=== PATIENT | female | born 1950 | race Caucasian/White ===

== ENCOUNTER → 2018-01-21 07:54 | Outpatient (CLI) | payer MEDICARE, SELFPAY ==
--- NOTE | 2018-01-21 07:56 | DI.MG.S_ITS ---
BILATERAL DIGITAL SCREENING MAMMOGRAM 3D/2D WITH CAD: 01/21/2018 CLINICAL: Routine screening. Comparison is made to exam dated: 09/20/2015 mammogram - [facility]. The tissue of both breasts is predominantly fatty. Current study was also evaluated with a Computer Aided Detection (CAD) system. There is a focal asymmetry in the left breast at 7 o'clock middle depth. No other significant masses, calcifications, or other findings are seen in either breast. IMPRESSION: INCOMPLETE: NEEDS ADDITIONAL IMAGING EVALUATION The focal asymmetry in the left breast is indeterminate. Additional views with possible ultrasound are recommended. This exam was interpreted at Station ID: [id number]. NOTE: For mammograms, a report in lay terms will be sent to the patient. Approximately 15% of breast malignancies will not be visualized mammographically. In the management of a palpable breast mass, a negative mammogram must not discourage biopsy of a clinically suspicious lesion. Electronically Signed By: Karlie khalil/reynaldo:01/21/2018 10:47:52 letter sent: Additional Imaging Needed ACR BI-RADS Category 0: Incomplete 3340F
[2018-01-21 10:52] LABS: Hemoglobin A1C% w Est Avg Glu 6.1 % (4.0-6.0)
[2018-01-21 10:54] LABS: Alanine Aminotransferase 18 IU/L (9-52); Albumin 4.4 g/dL (3.5-5.0); Albumin Globulin Ratio 1.5 (1.0-2.8); Alkaline Phosphatase 82 U/L (38-126); Aspartate Aminotransferase 27 IU/L (14-36); BUN Creatinine Ratio 25.7 (6-22); Bilirubin Total 1.8 mg/dL (0.2-1.3); Blood Urea Nitrogen 18 mg/dL (7-17); Calcium 9.6 mg/dL (8.4-10.2); Carbon Dioxide 27 mmol/L (22-32); Chloride 103 mmol/L (98-107); Cholesterol 252 mg/dL (140-199); Estimated Glomerular Filt Rate > 60.0 mL/min (>60); Globulin 2.9 g/dL (1.7-4.1); Glucose 111 mg/dL (80-110); HDL Cholesterol 52 mg/dL (40-60); HEMOLYSIS < 15 (0-50); LDL Cholesterol Calculated 158 mg/dL (<100); Potassium 4.1 mmol/L (3.4-5.1); Sodium 141 mmol/L (137-145); Total Protein 7.3 g/dL (6.3-8.2); Triglycerides 209 mg/dL (35-150)
== END ==
PROVIDERS: Visit Provider Family Medicine
DX: Z12.31 Encounter for screening mammogram for malignant neoplasm of breast (principal); Z13.1 Encounter for screening for diabetes mellitus; E78.5 Hyperlipidemia, unspecified; Z83.3 Family history of diabetes mellitus
CPT/HCPCS: 36415; 77063; 77067; 80053; 80061; 83036

== ENCOUNTER → 2018-02-16 12:37 | Outpatient (CLI) | payer MEDICARE, SELFPAY ==
--- NOTE | 2018-02-16 12:39 | DI.MG.S_ITS ---
UNILATERAL LEFT DIGITAL DIAGNOSTIC MAMMOGRAM 3D/2D WITH ADDITIONAL VIEWS: 02/16/2018 CLINICAL: Additional evaluation requested from prior study. Comparison is made to exams dated: 01/21/2018 mammogram - [facility] and 09/20/2015 mammogram - [facility]. The tissue of left breast is predominantly fatty. The focal asymmetry in the left breast at 9 o'clock middle depth is seen in additional views. No other significant masses or calcifications are seen in the breast. IMPRESSION: INCOMPLETE: NEEDS ADDITIONAL IMAGING EVALUATION The focal asymmetry in the left breast is indeterminate. A targeted ultrasound of the left breast is recommended and will be performed immediately following this exam. This exam was interpreted at Station ID: [id number]. NOTE: For mammograms, a report in lay terms will be sent to the patient. Approximately 15% of breast malignancies will not be visualized mammographically. In the management of a palpable breast mass, a negative mammogram must not discourage biopsy of a clinically suspicious lesion. Electronically Signed By: Karlie Glez M.D. lk/:02/16/2018 13:25:45 letter sent: Additional Imaging Needed ACR BI-RADS Category 0: Incomplete 3340F
--- NOTE | 2018-02-16 12:39 | DI.US.S_ITS ---
ULTRASOUND OF LEFT BREAST: 02/16/2018 CLINICAL: Patient returns today to evaluate a density in the left breast. Comparison is made to exams dated: 02/16/2018 mammogram, 01/21/2018 mammogram - [facility], and 09/20/2015 mammogram - [facility]. Color flow ultrasound of the left breast was performed on the areas of interest. Boyce scale images of the real-time examination were reviewed. There is a cluster of microcysts in the left breast at 10 o'clock middle depth. This correlates with mammography findings. IMPRESSION: PROBABLY BENIGN The cluster of microcysts in the left breast is probably benign. A follow-up mammogram and an ultrasound in 6 months is recommended to demonstrate stability. This exam was interpreted at Station ID: [id number]. Electronically Signed By: Karlie khalil/:02/16/2018 15:16:00 letter sent: Followup Recommended Ultrasound BI-RADS: 3 Probably benign
== END ==
PROVIDERS: Visit Provider Family Medicine
DX: R92.8 Other abnormal and inconclusive findings on diagnostic imaging of breast (principal); N64.89 Other specified disorders of breast
CPT/HCPCS: 76642; 77065; G0279

== ENCOUNTER → 2018-08-25 12:34 | Outpatient (CLI) | payer OTHER, SELFPAY ==
--- NOTE | 2018-08-25 12:37 | DI.US.S_ITS ---
ULTRASOUND OF LEFT BREAST: 08/25/2018 CLINICAL: Patient returns for a 6 month follow up of the left breast. Comparison is made to exams dated: 08/25/2018 mammogram, 02/16/2018 ultrasound, 02/16/2018 mammogram, 01/21/2018 mammogram - [facility], and 09/20/2015 mammogram - [facility]. Color flow ultrasound of the left breast was performed on the areas of interest. Boyce scale images of the real-time examination were reviewed. There is a stable cluster of microcysts in the left breast at 10 o'clock middle depth. This correlates with mammography findings. IMPRESSION: PROBABLY BENIGN The stable cluster of microcysts in the left breast is probably benign. A follow-up left mammogram and an ultrasound in 6 months is recommended to demonstrate stability. This exam was interpreted at Station ID: [id number]. Electronically Signed By: Karlie Glez M.D. lk/:08/25/2018 17:18:42 letter sent: Followup Recommended Ultrasound BI-RADS: 3 Probably benign
--- NOTE | 2018-08-25 12:37 | DI.MG.S_ITS ---
UNILATERAL LEFT DIGITAL DIAGNOSTIC MAMMOGRAM 3D/2D SHORT-TERM FOLLOW-UP: 08/25/2018 CLINICAL: Patient returns for a 6 month follow up of the left breast. Comparison is made to exams dated: 02/16/2018 ultrasound, 02/16/2018 mammogram, and 01/21/2018 mammogram - [facility]. The tissue of left breast is predominantly fatty. There is a stable focal asymmetry in the left breast at 10 o'clock middle depth. No other significant masses or calcifications are seen in the breast. IMPRESSION: INCOMPLETE: NEEDS ADDITIONAL IMAGING EVALUATION The stable focal asymmetry in the left breast is indeterminate. A targeted ultrasound of the left breast is recommended and will be performed immediately following this exam. This exam was interpreted at Station ID: [id number]. NOTE: For mammograms, a report in lay terms will be sent to the patient. Approximately 15% of breast malignancies will not be visualized mammographically. In the management of a palpable breast mass, a negative mammogram must not discourage biopsy of a clinically suspicious lesion. Electronically Signed By: aKrlie Glez M.D. lk/:08/25/2018 13:16:34 ACR BI-RADS Category 0: Incomplete 3340F
== END ==
PROVIDERS: PCP Family Medicine; Visit Provider Family Medicine
DX: R92.8 Other abnormal and inconclusive findings on diagnostic imaging of breast (principal); N64.89 Other specified disorders of breast
CPT/HCPCS: 76642; 77065; G0279

== ENCOUNTER → 2019-03-03 12:35 | Outpatient (CLI) | payer OTHER, SELFPAY ==
--- NOTE | 2019-03-03 | DI.MG.S_ITS ---
BILATERAL DIGITAL DIAGNOSTIC MAMMOGRAM 3D/2D SHORT-TERM FOLLOW-UP: 03/03/2019 CLINICAL: Patient returns for a 12 month follow up of the left breast, due for bilateral imaging. Comparison is made to exams dated: 08/25/2018 ultrasound, 08/25/2018 mammogram, 02/16/2018 ultrasound, 02/16/2018 mammogram, 01/21/2018 mammogram - [facility], and 09/20/[address] mamm[address] - [facility]. The tissue of both breasts is predominantly fatty. Previously described focal asymmetry of the medial left breast (described as being at 7 o'clock position on comparison mammogram of 01/21/18, 9 o'clock position on comparison mammogram of 02/16/18, and 10 o'clock position on comparison mammogram of 08/25/18) remains stable in appearance to prior comparison exams. IMPRESSION: INCOMPLETE: NEEDS ADDITIONAL IMAGING EVALUATION Previously described focal asymmetry of the medial left breast remains stable in appearance to prior comparison exams. A targeted ultrasound is recommended for further evaluation, and will be performed immediately following this exam. This exam was interpreted at Station ID: [id number]. NOTE: For mammograms, a report in lay terms will be sent to the patient. Approximately 15% of breast malignancies will not be visualized mammographically. In the management of a palpable breast mass, a negative mammogram must not discourage biopsy of a clinically suspicious lesion. Electronically Signed By: Kike Waldron M.D. ecl/:03/03/2019 13:39:39 ACR BI-RADS Category 0: Incomplete 3340F
--- NOTE | 2019-03-03 14:00 | DI.US.S_ITS ---
Patient Name: BENJI BLANKENSHIP date: 1950 Sex: F Attending Physician: Marybeth Indications: Date: 03/03/2019 13:40 At the request of: CALEB CHAO Procedure: US breast LT limited LIMITED ULTRASOUND OF LEFT BREAST: 03/03/2019 CLINICAL: 6 month follow-up. Comparison is made to exams dated: 03/03/2019 mammogram, 08/25/2018 ultrasound, 08/25/2018 mammogram, 02/16/2018 ultrasound, and 02/16/2018 mammogram - [facility]. Color flow and real-time ultrasound of the left breast 7-10 o'clock region were performed. Boyce scale images of the real-time examination were reviewed. There is a 0.6 x 0.5 x 0.3 cm oval circumscribed probable cluster of hypoechoic microcysts with increased through transmission/posterior acoustic enhancement, and no vascularity on Doppler ultrasound located in the left breast at 10 o'clock 4 cm from the nipple. This appears stable to prior comparison exams of 08/25/18 and 02/16/18. IMPRESSION: PROBABLY BENIGN Stable 0.6 x 0.5 x 0.3 cm probable cluster of microcysts in the left breast at 10 o'clock 4 cm from the nipple. A follow-up mammogram and an ultrasound in 6 months is recommended to demonstrate stability. The patient is advised to monitor her breasts and to return sooner for re-evaluation should she feel anything grow or change. This exam was interpreted at Station ID: [id number]. Electronically Signed By: Kike Waldron M.D. ecl/:03/03/2019 14:43:18 letter sent: Followup Recommended Ultrasound BI-RADS: 3 Probably benign
== END ==
PROVIDERS: PCP Family Medicine; Visit Provider Family Medicine
DX: R92.8 Other abnormal and inconclusive findings on diagnostic imaging of breast (principal); N64.89 Other specified disorders of breast
CPT/HCPCS: 76642; 77066; G0279

== ENCOUNTER 2019-05-12 07:51 | Day surgery (SDC) | payer OTHER, SELFPAY ==
[2019-05-10 12:23] VITALS: BMI 36.1
[2019-05-12] VITALS (12 sets, daily range): BP systolic 135–164; BP diastolic 77–96; PULSE 56–69; RESP 10–22; TEMP 35.4–36.8; O2SAT 94–97; BMI 36.0
--- NOTE | 2019-05-12 09:28 | PM.PREOP ---
Pre-operative Note Interval Note History & Physical reviewed/Exam performed by Physician: Yes Changes to H&P: No
--- NOTE | 2019-05-12 09:29 | PM.GYNHP.1 ---
History of Present Illness History of Present Illness Reason for admission: pelvic prolapse (Vaginal wall prolapse post hysterectomy) Narrative: Sharon Alfaro is a 68 year old female para 2 here for colpocleisis for vaginal wall prolapse post hysterectomy. Patient is and does not plan to become sexually active in the future. I had been consulted on March 17, 2019 and discussed options with the patient at that time of doing nothing, with the risks of possible urinary retention in the future or excoriation and possible infection of tissue bulging from her vagina. Pelvic for physical therapy. Discussed pessary use. Discuss surgical options. Patient wishes to proceed with colpocleisis. She is aware that she can no longer have vaginal intercourse after this procedure. Principal diagnosis: Vaginal wall prolapse post hysterectomy Planned procedure: [facility]pocleisis [facility] Social History marital status: household members: family occupational status: previously employed Smoking Status: Never smoker alcohol intake: current substance use type: does not use Meds Home Medications and Allergies Home Medications Medication Instructions Recorded Confirmed Type hydrochlorothiazide 25 mg tablet 25 mg PO DAILY #90 tab 03/29/19 05/12/19 Rx omeprazole 20 mg capsule,delayed 20 mg PO DAILY #90 cap 04/01/19 05/12/19 Rx release Allergies Allergy/AdvReac Type Severity Reaction Status Date / Time No Known Drug Allergies Allergy Verified 03/17/19 16:09 Review of Systems Review of Systems ROS: Yes All systems reviewed with the patient and are negative except as otherwise documented Exam Vital Signs (past 8 hours): - 05/12/19 09:06 Temperature 98.3 F Oxygen Delivery Method Room Air Narrative Exam Narrative: On physical exam the patient's HEENT exam within normal limits. Lungs are clear to auscultation and percussion. Heart is regular rate and rhythm no S3-S4 or murmurs. Abdomen is soft, nontender. Patient does have a mildly gaping introitus. Urethra appears normal with no hypermobility. Vaginal wall tissue is atrophic with a cystocele that prolapses out of the hymen and vaginal apex prolapse. Patient has no cervix or uterus. No adnexal masses or tenderness. Rectal exam does not reveal any significant rectocele or enterocele. Consent form was reviewed with the patient. Risks of damage to bladder, bowel, ureters. Risk of infection. Patient is aware she cannot have intercourse after this procedure. Small risk that she will have urinary leakage after this procedure. Risk of reaction to medication or anesthetic. Consent form was signed and questions answered. Assessment & Plan Assessment and plan (1) Cystocele with prolapse: Current visit: No Status: Acute (2) Preoperative exam for gynecologic surgery: Current visit: Yes Status: Acute Assessment & Plan narrative: Patient with symptomatic vaginal wall prolapse post hysterectomy with cystocele predominant who is requesting colpocleisis. Time Spent With Patient Time with patient: less than 15 minutes
[2019-05-12] MEDS: LACTATED RINGERS 1,000 ML 42 ML IV (09:45)
[2019-05-12] MEDS: CEFAZOLIN 2 GM/100 ML FROZ.PIGGY IV (09:50)
--- NOTE | 2019-05-12 10:13 | SUR.OPER ---
Lithotomy on padded OR bed, head on pillow, arms secured on padded arm boards at <90 degrees abduction. Legs secured in padded yellow fins stirrups. Stirrups and legs positioned by
[2019-05-12] MEDS: BUPIVACAINE 0.5% W/ EPI (PF) 10 ML VIAL 30 ML INJ (10:23)
--- NOTE | 2019-05-12 11:23 | P.OP_ITS ---
Operative Date/Time/Diagnoses Date of procedure: 05/12/19 Time of procedure: 11:23 Pre-op diagnosis: Symptomatic vaginal wall prolapse post hysterectomy Post-op diagnosis: same Procedure & Clinicians Procedure: Colpocleisis Same procedure as scheduled: Yes Indications: Symptomatic vaginal wall prolapse post hysterectomy Surgeon: Bettie Bull Click Yes if Unassisted: Yes Anesthesia Type: General Operative Notes Findings: Cystocele predominant vaginal wall prolapse Closure Type: primary Specimen(s): none sent Estimated Blood Loss (mL): 40 Blood products transfused: none Procedure in detail: - Patient was brought to the operating room where she was in a supine position in [facility] and underwent a light general anesthetic. She was prepped and draped in the usual sterile fashion. Her bladder was drained. 2 g of Ancef were in prior to beginning of the case. Warming was in place. Pulsatile stockings were in place. Area on anterior and posterior wall of the prolapse were marked with a marking pen and injected with a dilute solution of half percent Marcaine with epinephrine. The skin was incised with a scalpel and undermined with and removed removed with Metzenbaum scissors. The cystocele was reduced with 2 0 Vicryl suture pursestring. 2-0 Vicryl suture was used in an interrupted fashion to close anterior to posterior on the left side. The anterior posterior vaginal tissue was closed deep and then on the right side wall. The anterior posterior vaginal tissue was closed anteriorly. A wedge- shaped tissue was taken out of the posterior fourchette with a scalpel. The perineal body was built up with interrupted [id number] 0 Vicryl suture. Skin was closed with 2 0 Vicryl. Counts of instruments and sponges were correct. Patient went to recovery room in good condition. Complications: none Post-operative Condition: stable Disposition: same day surgery Plan for aftercare: Home when awake and stable
--- NOTE | 2019-05-12 11:34 | SUR.PHASEI ---
Resumed care of pt at this time. Bedside report received from KASHMIR Jaimes. Pt in stable condition, vss. pt alert and oriented, talking to RN. Bed in lowest position. Pt appears comfortable at this time.
[2019-05-12] MEDS: fentaNYL 100 MCG/2 ML INJ IV ×2 (11:37→11:45)
[2019-05-12] MEDS: HYDROCODONE/ACET 5/325 TABLET 2 TAB PO (11:50)
--- NOTE | 2019-05-12 12:23 | SUR.PHASEI ---
Dr. Bull at bedside accessing drainage amount from surgical site. Per Dr. Bull, no new orders at this time.
--- NOTE | 2019-05-12 12:43 | SUR.PHASEII ---
Pt brought to phase 11. States that she still feels like she is having some additional bleeding and feels wet in her rod region. I prepared to clean pt and apply new rod pad. I discovered that she was lying in a small wet patch of blood. Pt was placed in the supine position and draw pad was removed and rod region cleaned and new pads applied. Only small clots were noted during this procedure and blood lose was minimal. Pt was assisted with dressing and escorted to ED via whcr by tierney and dtr.
== END 2019-05-12 12:43 | disposition home or self-care (01) ==
PROVIDERS: PCP Family Medicine; Referring Provider Specialist; Visit Provider Specialist
PROC: (CPT 57120; principal; 2019-05-12 09:45)
DX: N81.3 Complete uterovaginal prolapse (principal); Z90.710 Acquired absence of both cervix and uterus
CPT/HCPCS: 57120; J0690; J1100; J2405; J2704; J3010

== ENCOUNTER → 2019-08-30 12:23 | Outpatient (CLI) | payer OTHER, SELFPAY ==
--- NOTE | 2019-08-30 12:24 | DI.MG.S_ITS ---
UNILATERAL LEFT DIGITAL DIAGNOSTIC MAMMOGRAM 3D/2D SHORT-TERM FOLLOW-UP: 08/30/2019 CLINICAL: Short term follow up for the left breast. Comparison is made to exams dated: 03/03/2019 mammogram, 08/25/2018 mammogram, and 02/16/2018 mammogram - [facility]. The tissue of left breast is predominantly fatty. There is a stable 5 mm round asymmetry in the left breast at 8 o'clock anterior depth. This has been stable over multiple prior studies. No other significant masses or calcifications are seen in the breast. IMPRESSION: INCOMPLETE: NEEDS ADDITIONAL IMAGING EVALUATION The 5 mm round asymmetry in the left breast is stable. Ultrasound is recommended to document sonographic stability. This was performed immediately following this exam. This exam was interpreted at Station ID: [id number]. NOTE: For mammograms, a report in lay terms will be sent to the patient. Approximately 15% of breast malignancies will not be visualized mammographically. In the management of a palpable breast mass, a negative mammogram must not discourage biopsy of a clinically suspicious lesion. Electronically Signed By: Jessie glynn/:08/30/2019 14:13:18 ACR BI-RADS Category 0: Incomplete 3340F
--- NOTE | 2019-08-30 12:24 | DI.US.S_ITS ---
LIMITED ULTRASOUND OF LEFT BREAST: 08/30/2019 CLINICAL: Lt Breast 6 MOS F/U. Comparison is made to exams dated: 08/30/2019 mammogram, 03/03/2019 ultrasound, 03/03/2019 mammogram, 08/25/2018 ultrasound, 08/25/2018 mammogram, and 02/16/2018 ultrasound [facility]. Color flow and real-time ultrasound of the left breast 10 o'clock region were performed. Boyce scale images of the real-time examination were reviewed. There is a stable benign 0.5 cm x 0.3 cm x 0.6 cm oval cyst in the left breast at 10 o'clock middle depth 4 cm from the nipple. This correlates with mammography findings. Color flow imaging demonstrates that there is no vascularity present. No suspicious findings. IMPRESSION: BENIGN There is no sonographic evidence of malignancy. The stable 0.6 cm oval cyst in the left breast is consistent with a complicated cyst and is benign. Return to annual mammogram screening schedule is recommended. Findings and recommendations were conveyed to the patient at time of exam. This exam was interpreted at Station ID: [id number]. Electronically Signed By: Jessie glynn/:08/30/2019 14:15:42 letter sent: Normal Exam Ultrasound BI-RADS: 2 Benign
== END ==
PROVIDERS: PCP Family Medicine; Referring Provider Family Medicine; Visit Provider Family Medicine
DX: R92.8 Other abnormal and inconclusive findings on diagnostic imaging of breast (principal); N60.02 Solitary cyst of left breast
CPT/HCPCS: 76642; 77065; G0279

== ENCOUNTER → 2019-09-06 14:06 | Outpatient (CLI) | payer OTHER, SELFPAY ==
--- NOTE | 2019-09-06 14:07 | DI.MRI.S_ITS ---
PROCEDURE: MR KNEE RT WO CON INDICATIONS: right knee pain, suspect meniscus tear TECHNIQUE: Noncontrast sagittal PD fast spin echo and T2 fast spin echo with fat saturation, sagittal 3-D FLASH with fat saturation; coronal T1 spin echo and PD fast spin echo with fat saturation, and axial PD fast spin echo with fat saturation through the knee. COMPARISON: None FINDINGS: Image quality: Excellent. Menisci: Medial extrusion of the medial meniscus is present. There is linear amorphous high signal intensity within the anterior horn, body, and posterior horn medial meniscus, demonstrating superior and inferior articular surface extension. There is one area horizontally oriented high T2 signal intensity traversing the lateral meniscal body, demonstrating inferior articular surface extension, indicating horizontal tearing. Cruciate ligaments: The anterior and posterior cruciate ligaments appear intact. Medial structures: The medial collateral ligament appears intact. Small amount of fluid deep to the medial collateral ligament. Visualized portions of the pes anserinus tendons appear normal. No abnormal bursal fluid. Linear high T2 signal intensity traverses the semimembranosus at the muscle tendinous junction (series 6 image 9). Lateral structures: The lateral collateral ligament, long and short heads of the biceps femoris tendon appear intact. The popliteus tendon appears normal. Iliotibial band appears normal. Anterior structures: The quadriceps and patellar tendons appear intact. Patellar alignment is normal. No femoral trochlear dysplasia or ventral trochlear prominence. No edema in the infrapatellar fat pad. Bones and cartilage: No bone marrow contusions or fractures. There is mild subchondral degenerative marrow edema within the mid/anterior weightbearing aspects of the medial tibial plateau. Severe articular cartilage loss diffusely overlies the weightbearing aspects of the medial femoral condyle and medial tibial plateau. Mild articular cartilage loss diffusely overlies the weightbearing aspects of the lateral femoral condyle and lateral tibial plateau. There is a superimposed moderate grade region of articular cartilage loss overlying the mid/posterior weightbearing aspect of the lateral femoral condyle measuring 5 mm transverse. There is severe articular cartilage loss overlying the patellar apex. Joint space: There is a small knee joint effusion and a small ganglion cyst along the popliteus. No Stallings's cyst. Normal appearing synovial plicae are incidentally noted. IMPRESSION: 1. Tricompartmental osteoarthritis with associated articular cartilage loss. 2. Medial and lateral meniscal tearing. 3. Small knee joint effusion. 4. Medial collateral l ligament bursitis. 5. Partial-thickness tearing of the semimembranosus. Dictated by: Zully Vitale M.D. on 09/06/2019 at 15:09 Approved by: Zully Vitale M.D. on 09/06/2019 at 15:12
== END ==
PROVIDERS: PCP Family Medicine; Referring Provider Family Medicine; Visit Provider Family Medicine
DX: M25.561 Pain in right knee (principal); M17.11 Unilateral primary osteoarthritis, right knee; S83.281A Other tear of lateral meniscus, current injury, right knee, initial encounter; S83.241A Other tear of medial meniscus, current injury, right knee, initial encounter; M25.461 Effusion, right knee; M71.561 Other bursitis, not elsewhere classified, right knee
CPT/HCPCS: 73721

== ENCOUNTER → 2020-01-30 13:53 | Outpatient (ROUT) | payer OTHER, SELFPAY ==
[2020-02-01 07:08] LABS: Fecal Immunochemical Test Negative (Negative)
== END ==
PROVIDERS: PCP Family Medicine; Visit Provider Family Medicine
DX: Z12.11 Encounter for screening for malignant neoplasm of colon (principal)
CPT/HCPCS: 82274

== ENCOUNTER → 2020-03-06 11:17 | Outpatient (CLI) | payer OTHER, SELFPAY ==
--- NOTE | 2020-03-06 | DI.MG.S_ITS ---
BILATERAL DIGITAL SCREENING MAMMOGRAM 3D/2D WITH CAD: 03/06/2020 CLINICAL: Routine screening. Comparison is made to exams dated: 08/30/2019 mammogram, 03/03/2019 mammogram, 08/25/2018 mammogram, 02/16/2018 mammogram, 01/21/2018 mammogram - [facility], and 09/20/2015 mammogram - [facility]. There are scattered fibroglandular elements in both breasts. Current study was also evaluated with a Computer Aided Detection (CAD) system. No significant masses, calcifications, or other findings are seen in either breast. There has been no significant interval change. IMPRESSION: NEGATIVE There is no mammographic evidence of malignancy. A 1 year screening mammogram is recommended. This exam was interpreted at Station ID: [id number]. NOTE: For mammograms, a report in lay terms will be sent to the patient. Approximately 15% of breast malignancies will not be visualized mammographically. In the management of a palpable breast mass, a negative mammogram must not discourage biopsy of a clinically suspicious lesion. Electronically Signed By: Mickey manzano/reynaldo:03/06/2020 15:30:34 letter sent: Normal Exam ACR BI-RADS Category 1: Negative 3341F
== END ==
PROVIDERS: PCP Family Medicine; Referring Provider Family Medicine; Visit Provider Family Medicine
DX: Z12.31 Encounter for screening mammogram for malignant neoplasm of breast (principal)
CPT/HCPCS: 77063; 77067

== ENCOUNTER → 2020-08-09 15:14 | Outpatient (CLI) | payer OTHER, SELFPAY ==
--- NOTE | 2020-08-09 15:16 | DI.RAD.S_ITS ---
PROCEDURE: XR KNEE RT 3V INDICATIONS: right knee pain, fall 4 weeks TECHNIQUE: 3 views of the knee were acquired. COMPARISON: None. FINDINGS: Bones: No fractures or dislocations. No suspicious bony lesions. There are tricompartmental degenerative changes with osteophytes. Soft tissues: No joint effusion. No suspicious soft tissue calcifications. IMPRESSION: Degenerative changes of the right knee consistent with osteoarthritis. No acute abnormality. Dictated by: Ramiro Huston M.D. on 08/09/2020 at 18:30 Approved by: Ramiro Huston M.D. on 08/09/2020 at 18:32
== END ==
PROVIDERS: PCP Family Medicine; Referring Provider Family Medicine; Visit Provider Family Medicine
DX: M25.561 Pain in right knee (principal); S89.91XA Unspecified injury of right lower leg, initial encounter; W19.XXXA Unspecified fall, initial encounter
CPT/HCPCS: 73562

== ENCOUNTER → 2021-03-14 10:21 | Outpatient (CLI) | payer OTHER, SELFPAY ==
--- NOTE | 2021-03-14 10:22 | DI.MG.S_ITS ---
BILATERAL DIGITAL SCREENING MAMMOGRAM 3D/2D WITH CAD: 03/14/2021 CLINICAL: Routine screening. Family history of breast cancer. Comparison is made to exams dated: 03/06/2020 mammogram, 08/30/2019 mammogram, 03/03/2019 mammogram, 08/25/2018 mammogram, 02/16/2018 mammogram, and 01/21/2018 mammogram - [facility]. There are scattered fibroglandular elements in both breasts. Current study was also evaluated with a Computer Aided Detection (CAD) system. No significant masses, calcifications, or other findings are seen in either breast. There has been no significant interval change. IMPRESSION: NEGATIVE There is no mammographic evidence of malignancy. A 1 year screening mammogram is recommended. This exam was interpreted at Station ID: [id number]. NOTE: For mammograms, a report in lay terms will be sent to the patient. Approximately 15% of breast malignancies will not be visualized mammographically. In the management of a palpable breast mass, a negative mammogram must not discourage biopsy of a clinically suspicious lesion. Electronically Signed By: Teddy britton/reynaldo:03/14/2021 13:37:11 letter sent: Normal Exam ACR BI-RADS Category 1: Negative [id number]
== END ==
PROVIDERS: PCP Family Medicine; Referring Provider Family Medicine; Visit Provider Family Medicine
DX: Z12.31 Encounter for screening mammogram for malignant neoplasm of breast (principal); Z80.3 Family history of malignant neoplasm of breast
CPT/HCPCS: 77063; 77067

== ENCOUNTER → 2021-05-03 11:38 | Outpatient (CLI) | payer OTHER, SELFPAY ==
--- NOTE | 2021-05-03 11:40 | DI.RAD.S_ITS ---
PROCEDURE: XR SHOULDER LT MIN 2V INDICATIONS: left shoulder pain TECHNIQUE: 3 views of the shoulder were acquired. COMPARISON: None. FINDINGS: Bones: No fractures or dislocations. No suspicious bony lesions. There is loss of the joint space of the glenohumeral joint with subchondral sclerosis. Osteophytes of the inferior humeral head are seen. Soft tissues: No suspicious soft tissue calcifications. IMPRESSION: 1. No acute abnormality of the left shoulder. 2. Degenerative changes of the left shoulder consistent with osteoarthritis. Dictated by: Ramiro Huston M.D. on 05/03/2021 at 16:36 Approved by: Ramiro Huston M.D. on 05/03/2021 at 16:37
== END ==
PROVIDERS: PCP Family Medicine; Referring Provider Family Medicine; Visit Provider Family Medicine
DX: M25.512 Pain in left shoulder (principal)
CPT/HCPCS: 73030

== ENCOUNTER → 2021-06-25 14:31 | Outpatient (CLI) | payer OTHER, SELFPAY ==
--- NOTE | 2021-06-25 14:32 | DI.RAD.S_ITS ---
PROCEDURE: XR DEXA AXIAL SKELETON INDICATIONS: screening osteoporosis COMPARISON: None. FINDINGS: This blank DEXA report has been sent in error by the PACS system. The correct and complete report will be forthcoming in 1-2 days. Thank you for your patience and understanding. Dictated by: Sarah Mcgowan MD, PhD on 06/25/2021 at 17:09 Approved by: Sarah Mcgowan MD, PhD on 06/25/2021 at 17:10
== END ==
PROVIDERS: PCP Family Medicine; Referring Provider Family Medicine; Visit Provider Family Medicine
DX: Z78.0 Asymptomatic menopausal state (principal); Z13.820 Encounter for screening for osteoporosis; M85.851 Other specified disorders of bone density and structure, right thigh
CPT/HCPCS: 77080

== ENCOUNTER → 2022-01-06 14:44 | Outpatient (CLI) | payer OTHER, SELFPAY ==
--- NOTE | 2022-01-06 14:47 | DI.RAD.S_ITS ---
PROCEDURE: XR SHOULDER RT MIN 2V INDICATIONS: right shoulder pain TECHNIQUE: 3 views of the shoulder were acquired. COMPARISON: [facility], CR, XR SHOULDER LT MIN 2V, 05/03/2021, 12:51. FINDINGS: Bones: No fractures or dislocations. No suspicious bony lesions. There is a moderate-sized osteophyte off the inferior humeral head. The acromioclavicular joint is preserved. Visualized ribs appear intact. Soft tissues: No suspicious soft tissue calcifications. IMPRESSION: Degenerative change at the glenohumeral joint. Dictated by: Karlie Glez M.D. on 01/06/2022 at 16:43 Approved by: Karlie Glez M.D. on 01/06/2022 at 16:44
== END ==
PROVIDERS: PCP Family Medicine; Referring Provider Family Medicine; Visit Provider Family Medicine
DX: M25.711 Osteophyte, right shoulder (principal); M25.511 Pain in right shoulder
CPT/HCPCS: 73030

== ENCOUNTER → 2022-03-20 10:58 | Outpatient (CLI) | payer OTHER, SELFPAY ==
--- NOTE | 2022-03-20 10:59 | DI.MG.S_ITS ---
BILATERAL DIGITAL SCREENING MAMMOGRAM 3D/2D WITH CAD: 03/20/2022 CLINICAL: Routine screening. Family history of breast cancer. Comparison is made to exams dated: 03/14/2021 mammogram, 03/06/2020 mammogram, 03/03/2019 mammogram, and 08/30/2019 mammogram - [facility]. There are scattered areas of fibroglandular density in both breasts (category b / 25%-50% glandular tissue). Current study was also evaluated with a Computer Aided Detection (CAD) system. No significant masses, calcifications, or other findings are seen in either breast. There has been no significant interval change. IMPRESSION: NEGATIVE There is no mammographic evidence of malignancy. A 1 year screening mammogram is recommended. Based on the Tyrer Cuzick model (a risk assessment model) the patient's lifetime risk is 3.0% and her 10 year risk is 2.4%. According to the ACR, ACS, and NCCN guidelines, an annual breast MRI exam along with mammogram is recommended if the patient's lifetime risk is 20% or greater. This exam was interpreted at Station ID: [id number]. NOTE: For mammograms, a report in lay terms will be sent to the patient. Approximately 15% of breast malignancies will not be visualized mammographically. In the management of a palpable breast mass, a negative mammogram must not discourage biopsy of a clinically suspicious lesion. Electronically Signed By: Ashish Neri M.D., jr/reynaldo:03/20/2022 13:25:07 letter sent: Normal Exam ACR BI-RADS Category 1: Negative [id number]
== END ==
PROVIDERS: PCP Family Medicine; Referring Provider Family Medicine; Visit Provider Family Medicine
DX: Z12.31 Encounter for screening mammogram for malignant neoplasm of breast (principal); Z80.3 Family history of malignant neoplasm of breast
CPT/HCPCS: 77063; 77067

== ENCOUNTER → 2022-09-29 10:23 | Outpatient (CLI) | payer OTHER, SELFPAY ==
[2022-09-29 12:22] LABS: Alanine Aminotransferase 20 IU/L (<35); Albumin 4.1 g/dL (3.5-5.0); Albumin Globulin Ratio 1.5 (1.0-2.8); Alkaline Phosphatase 81 U/L (38-126); Aspartate Aminotransferase 32 IU/L (14-36); BUN Creatinine Ratio 39.7 (6-22); Bilirubin Total 1.4 mg/dL (0.2-1.3); Blood Urea Nitrogen 27 mg/dL (7-17); Calcium 9.2 mg/dL (8.4-10.2); Carbon Dioxide 27 mmol/L (22-32); Chloride 104 mmol/L (98-107); Cholesterol 234 mg/dL (140-199); Estimated Glomerular Filt Rate > 60 mL/min (>60); Globulin 2.8 g/dL (1.7-4.1); Glucose 128 mg/dL (80-110); HDL Cholesterol 52 mg/dL (40-60); HEMOLYSIS 21 (0-50); LDL Cholesterol Calculated 150 mg/dL (<100); Potassium 3.7 mmol/L (3.4-5.1); Sodium 138 mmol/L (137-145); Total Protein 6.9 g/dL (6.3-8.2); Triglycerides 160 mg/dL (35-150)
[2022-09-29 12:37] LABS: Hemoglobin 14.5 g/dL (12.0-16.0); Mean Corpuscular HGB Conc 34.5 % (30-36); Mean Corpuscular Volume 89.8 fL (80-100); Platelet Count 226 X10^3/uL (150-400); Red Blood Cell Count 4.68 X10^6/uL (4.0-5.2); White Blood Cell Count 7.8 X10^3/uL (4.5-11.0)
[2022-09-29 12:48] LABS: TSH w/ Reflex to FT4 0.44 uIU/mL (0.47-4.68)
[2022-09-29 13:21] LABS: Free T4, Direct Thyroxine 1.33 ng/dL (0.78-2.19)
[2022-09-30 05:50] LABS: Labcorp Hemoglobin (Hb) A1c 6.5 % (4.8-5.6)
== END ==
PROVIDERS: PCP Internal Medicine; Referring Provider Internal Medicine; Visit Provider Internal Medicine
DX: E78.2 Mixed hyperlipidemia (principal); R73.01 Impaired fasting glucose
CPT/HCPCS: 36415; 80053; 80061; 83036; 84439; 84443; 85027

== ENCOUNTER → 2023-08-05 11:50 | Outpatient (CLI) | payer MEDICARE, SELFPAY ==
--- NOTE | 2023-08-05 11:52 | DI.MG.S_ITS ---
BILATERAL DIGITAL SCREENING MAMMOGRAM 3D/2D WITH CAD: 08/05/2023 CLINICAL: Routine screening. Family history of breast cancer. Comparison is made to exams dated: 03/20/2022 mammogram, 03/14/2021 mammogram, and 03/06/2020 mammogram - [facility]. Both breasts are almost entirely fatty (category a/<25% glandular tissue). Current study was also evaluated with a Computer Aided Detection (CAD) system. No significant masses, calcifications, or other findings are seen in either breast. There has been no significant interval change. IMPRESSION: NEGATIVE There is no mammographic evidence of malignancy. A 1 year screening mammogram is recommended. Based on the Tyrer Cuzick model (a risk assessment model) the patient's lifetime risk is 1.8% and her 10 year risk is 1.7%. According to the ACR, ACS, and NCCN guidelines, an annual breast MRI exam along with mammogram is recommended if the patient's lifetime risk is 20% or greater. This exam was interpreted at Station ID: [id number]. NOTE: For mammograms, a report in lay terms will be sent to the patient. Approximately 15% of breast malignancies will not be visualized mammographically. In the management of a palpable breast mass, a negative mammogram must not discourage biopsy of a clinically suspicious lesion. Electronically Signed By: Karlie khalil/reynaldo:08/05/2023 16:26:33 letter sent: Normal Exam ACR BI-RADS Category 1: Negative [id number]
== END ==
PROVIDERS: PCP Student in an Organized Health Care Education/Training Program; Referring Provider Student in an Organized Health Care Education/Training Program; Visit Provider Student in an Organized Health Care Education/Training Program
DX: Z12.31 Encounter for screening mammogram for malignant neoplasm of breast (principal); Z80.3 Family history of malignant neoplasm of breast; R92.313 Mammographic fatty tissue density, bilateral breasts
CPT/HCPCS: 77063; 77067

== ENCOUNTER → 2024-04-04 09:46 | Outpatient (CLI) | payer MEDICARE, SELFPAY ==
[2024-04-04 10:42] LABS: Hemoglobin A1C% w Est Avg Glu 6.5 % (4.0-6.0)
[2024-04-04 10:49] LABS: Cholesterol 174 mg/dL (140-199); HDL Cholesterol 70 mg/dL (40-60); LDL Cholesterol Calculated 76 mg/dL (<100); Triglycerides 140 mg/dL (35-150)
[2024-04-04 11:54] LABS: Creatinine Urine Random 106.82 mg/dL
[2024-04-04 11:59] LABS: Microalbumin Urine Random 4.1 mg/dL (0-1.6)
== END ==
PROVIDERS: PCP Student in an Organized Health Care Education/Training Program; Referring Provider Student in an Organized Health Care Education/Training Program; Visit Provider Student in an Organized Health Care Education/Training Program
DX: E11.69 Type 2 diabetes mellitus with other specified complication (principal); E78.5 Hyperlipidemia, unspecified
CPT/HCPCS: 36415; 80061; 82043; 82570; 83036

== ENCOUNTER → 2024-04-07 12:38 | Outpatient (CLI) | payer MEDICARE, SELFPAY ==
--- NOTE | 2024-04-07 12:41 | DI.CT.S_ITS ---
PROCEDURE: CT UE LT WO CON INDICATIONS: PRIMARY OSTEOARTHRITIS LEFT SHOULDER TECHNIQUE: Noncontrast 0.75 mm thick sections acquired from the acromioclavicular joint to the inferior scapula, with coronal and sagittal reformatting. COMPARISON: [facility], CR, XR SHOULDER 2+ VIEWS LEFT, 03/21/2024, 11:27. [facility], CR, XR SHOULDER 2+ VIEWS BILATERAL, 02/06/2022, 10:52. FINDINGS: Image quality: Excellent. Bones: No acute fracture or dislocation. Diffuse osseous demineralization. Joints: Severe glenohumeral osteoarthritis with subchondral cyst formation at the glenoid, a large crescentic osteophyte at the inferior-medial humeral head margin, complete joint space loss, and joint space remodeling. Mild acromioclavicular osteoarthritis. Muscles: Overall muscle bulk is preserved. Tendons: Long head of the biceps tendon contour present in the bicipital groove. Vessels: No aneurysmal dilatation of the visualized left upper extremity vasculature. Lymph nodes: No left axillary lymphadenopathy. Other soft tissues: Mild cardiomegaly (6/156). IMPRESSION: 1. Severe glenohumeral osteoarthritis. 2. Mild acromioclavicular osteoarthritis. Dictated by: Gus Daniel M.D. on 04/08/2024 at 12:12 Approved by: Gus Daniel M.D. on 04/08/2024 at 12:36
== END ==
PROVIDERS: PCP Student in an Organized Health Care Education/Training Program; Referring Provider Orthopaedic Surgery; Visit Provider Orthopaedic Surgery
DX: M19.012 Primary osteoarthritis, left shoulder (principal)
CPT/HCPCS: 73200

== ENCOUNTER → 2024-05-06 07:56 | Outpatient (CLI) | payer MEDICARE, SELFPAY ==
[2024-05-06 08:39] LABS: Add Manual Diff / Slide Review NO; Basophils Absolute Auto 100 /uL (0-100); Basophils Percent Auto 0.9 % (0-2); Eosinophils Absolute Auto 200 /uL (0-450); Eosinophils Percent Auto 3.2 % (2-4); Hematocrit 44.7 % (36-46); Lymphocytes Absolute Auto 1800 /uL (1100-4500); Lymphocytes Percent Auto 30.4 % (25-40); Mean Corpuscular HGB Conc 33.6 % (30-36); Mean Corpuscular Hemoglobin 30.7 PG (26-34); Mean Corpuscular Volume 91.4 fL (80-100); Monocytes Absolute Auto 400 /uL (0-900); Monocytes Percent Auto 6.5 % (3-14); Neutrophils Absolute Auto 3400 /uL (1500-7000); Platelet Count 231 X10^3/uL (150-400); Red Blood Cell Count 4.89 X10^6/uL (4.0-5.2); Red Cell Distribution Width 12.3 % (11.6-14.8); White Blood Cell Count 5.8 X10^3/uL (4.5-11.0)
[2024-05-06 08:55] LABS: BUN Creatinine Ratio 32.9 (6-22); Blood Urea Nitrogen 23 mg/dL (7-17); Calcium 9.6 mg/dL (8.4-10.2); Carbon Dioxide 28 mmol/L (22-32); Chloride 102 mmol/L (98-107); Estimated Glomerular Filt Rate > 60 mL/min (>60); Glucose 128 mg/dL (80-110); HEMOLYSIS < 15 (0-50); Potassium 4.5 mmol/L (3.4-5.1); Sodium 138 mmol/L (137-145)
== END ==
LOC: LAB 07:57
PROVIDERS: PCP Student in an Organized Health Care Education/Training Program; Referring Provider Orthopaedic Surgery; Visit Provider Orthopaedic Surgery
DX: Z01.83 Encounter for blood typing (principal); Z01.812 Encounter for preprocedural laboratory examination
CPT/HCPCS: 36415; 80048; 85025; 86850; 86900; 86901

== ENCOUNTER → 2024-05-10 08:56 | Outpatient (CLI) | payer MEDICARE, SELFPAY ==
--- NOTE | 2024-05-10 09:07 | EKG_ITS ---
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
== END ==
LOC: RESP 08:57
PROVIDERS: PCP Student in an Organized Health Care Education/Training Program; Referring Provider Orthopaedic Surgery; Visit Provider Orthopaedic Surgery
DX: Z01.818 Encounter for other preprocedural examination (principal)
CPT/HCPCS: 93005

== ENCOUNTER → 2024-06-13 10:34 | Outpatient (CLI) | payer MEDICARE, SELFPAY ==
[2024-06-13 11:37] LABS: Alanine Aminotransferase 17 IU/L (<35); Albumin 4.1 g/dL (3.5-5.0); Albumin Globulin Ratio 1.7 (1.0-2.8); Alkaline Phosphatase 76 U/L (38-126); Aspartate Aminotransferase 25 IU/L (14-36); BUN Creatinine Ratio 31.2 (6-22); Bilirubin Total 1.8 mg/dL (0.2-1.3); Blood Urea Nitrogen 24 mg/dL (7-17); Calcium 9.7 mg/dL (8.4-10.2); Carbon Dioxide 28 mmol/L (22-32); Chloride 101 mmol/L (98-107); Estimated Glomerular Filt Rate > 60 mL/min (>60); Globulin 2.4 g/dL (1.7-4.1); Glucose 163 mg/dL (80-110); HEMOLYSIS < 15 (0-50); Potassium 3.7 mmol/L (3.4-5.1); Sodium 138 mmol/L (137-145); Total Protein 6.5 g/dL (6.3-8.2)
[2024-06-13 11:38] LABS: Hemoglobin A1C% w Est Avg Glu 6.2 % (4.0-6.0)
== END ==
PROVIDERS: PCP Student in an Organized Health Care Education/Training Program; Referring Provider Student in an Organized Health Care Education/Training Program; Visit Provider Student in an Organized Health Care Education/Training Program
DX: E11.69 Type 2 diabetes mellitus with other specified complication (principal); E78.5 Hyperlipidemia, unspecified
CPT/HCPCS: 36415; 80053; 83036

== ENCOUNTER → 2024-06-28 09:14 | Outpatient (CLI) | payer MEDICARE, SELFPAY ==
--- NOTE | 2024-06-28 09:16 | DI.US.S_ITS ---
PROCEDURE: US ABDOMEN LIMITED INDICATIONS: Elevated bilirubin/change in stool color TECHNIQUE: Real-time scanning was performed of the abdominal and retroperitoneal organs, with image documentation. COMPARISON: None. FINDINGS: Liver: Liver is normal in size and homogeneous in echotexture. Liver is diffusely echogenic. Gallbladder: Gallbladder is surgically absent. Biliary ducts: Intrahepatic bile ducts are non-dilated. Extrahepatic bile duct caliber measures 8.0 mm. Normal is 6-7 mm or less in diameter, or 10 mm or less post-cholecystectomy. Pancreas: Visualized portions of the pancreas are sonographically normal. Miscellaneous: No free abdominal fluid. IMPRESSION: Echogenic liver. Finding typically represents fatty infiltration; however, finding is nonspecific and correlation with clinical and laboratory findings is recommended to exclude other etiologies including hepatic cirrhosis. Cholecystectomy. Biliary system is nondilated. Dictated by: Sarah Mcgowan MD, PhD on 06/28/2024 at 12:12 Approved by: Sarah Mcgowan MD, PhD on 06/28/2024 at 12:13
[2024-06-28 11:16] LABS: Alanine Aminotransferase 18 IU/L (<35); Albumin Globulin Ratio 1.7 (1.0-2.8); Alkaline Phosphatase 73 U/L (38-126); Aspartate Aminotransferase 26 IU/L (14-36); BUN Creatinine Ratio 23.5 (6-22); Bilirubin Total 2.3 mg/dL (0.2-1.3); Blood Urea Nitrogen 19 mg/dL (7-17); Calcium 9.5 mg/dL (8.4-10.2); Carbon Dioxide 30 mmol/L (22-32); Chloride 101 mmol/L (98-107); Estimated Glomerular Filt Rate > 60 mL/min (>60); Globulin 2.4 g/dL (1.7-4.1); Glucose 116 mg/dL (70-99); HEMOLYSIS < 15 (0-50); Potassium 3.8 mmol/L (3.4-5.1); Sodium 138 mmol/L (137-145); Total Protein 6.4 g/dL (6.3-8.2)
== END ==
PROVIDERS: PCP Student in an Organized Health Care Education/Training Program; Referring Provider Student in an Organized Health Care Education/Training Program; Visit Provider Student in an Organized Health Care Education/Training Program
DX: R17 Unspecified jaundice (principal); Z90.49 Acquired absence of other specified parts of digestive tract
CPT/HCPCS: 36415; 76705; 80053; 82247

== ENCOUNTER → 2024-06-28 10:30 | Outpatient (CLI) | payer MEDICARE, SELFPAY ==
[2024-06-28 13:03] LABS: Bilirubin Total 2.4 mg/dL (0.2-1.3)
== END ==
PROVIDERS: PCP Student in an Organized Health Care Education/Training Program; Visit Provider Student in an Organized Health Care Education/Training Program
DX: R17 Unspecified jaundice (principal)
CPT/HCPCS: 82247

== ENCOUNTER → 2024-07-07 10:29 | Outpatient (CLI) | payer MEDICARE, SELFPAY ==
[2024-07-07 11:10] LABS: Add Manual Diff / Slide Review NO; Basophils Absolute Auto 0 /uL (0-100); Basophils Percent Auto 0.5 % (0-2); Eosinophils Absolute Auto 100 /uL (0-450); Eosinophils Percent Auto 1.4 % (2-4); Hematocrit 43.3 % (36-46); Hemoglobin 14.9 g/dL (12.0-16.0); Lymphocytes Absolute Auto 2200 /uL (1100-4500); Lymphocytes Percent Auto 24.2 % (25-40); Mean Corpuscular HGB Conc 34.4 % (30-36); Mean Corpuscular Hemoglobin 31.1 PG (26-34); Mean Corpuscular Volume 90.5 fL (80-100); Monocytes Absolute Auto 600 /uL (0-900); Monocytes Percent Auto 6.7 % (3-14); Neutrophils Absolute Auto 6200 /uL (1500-7000); Neutrophils Percent Auto 67.2 % (50-75); Platelet Count 237 X10^3/uL (150-400); Red Blood Cell Count 4.79 X10^6/uL (4.0-5.2); Red Cell Distribution Width 12.8 % (11.6-14.8); White Blood Cell Count 9.3 X10^3/uL (4.5-11.0)
[2024-07-07 11:21] LABS: Prothrombin Time 11.8 SECONDS (9.4-12.5); Reticulocyte Count, Percent 0.8 % (1.1-2.6)
[2024-07-07 11:47] LABS: Lactate Dehydrogenase 174 U/L (120-246)
[2024-07-08 04:08] LABS: Haptoglobin 207 mg/dL (42-346)
== END ==
PROVIDERS: PCP Student in an Organized Health Care Education/Training Program; Referring Provider Student in an Organized Health Care Education/Training Program; Visit Provider Student in an Organized Health Care Education/Training Program
DX: R79.9 Abnormal finding of blood chemistry, unspecified (principal); R17 Unspecified jaundice
CPT/HCPCS: 36415; 83010; 83615; 85025; 85045; 85610

== ENCOUNTER → 2024-07-11 15:02 | Outpatient (CLI) | payer MEDICARE, SELFPAY ==
[2024-07-11 15:47] LABS: INR 1.1 (0.9-1.3); Prothrombin Time 11.9 SECONDS (9.4-12.5)
[2024-07-11 15:57] LABS: Bilirubin Total 1.9 mg/dL (0.2-1.3)
== END ==
PROVIDERS: PCP Student in an Organized Health Care Education/Training Program; Referring Provider Student in an Organized Health Care Education/Training Program; Visit Provider Student in an Organized Health Care Education/Training Program
DX: E80.6 Other disorders of bilirubin metabolism (principal); D68.9 Coagulation defect, unspecified
CPT/HCPCS: 36415; 82247; 82248; 85610

== ENCOUNTER 2024-08-11 11:53 | Emergency (ER) | payer MEDICARE, SELFPAY ==
[2024-08-11] VITALS (11 sets, daily range): BP systolic 95–160; BP diastolic 52–71; PULSE 68–417; RESP 12–23; TEMP 36.6; O2SAT 95–98; BMI 37.5
--- NOTE | 2024-08-11 12:00 | DI.CT.S_ITS ---
PROCEDURE: CT ANGIO HEAD AND NECK INDICATIONS: Dizziness TECHNIQUE: After the administration of intravenous contrast, 1 mm thick sections acquired from the aortic arch through the [place]. 3-dimensional skpdmzw-rdmabqhhb-pnctorjzhn (MIP) and/or volume rendering reformats were acquired of the central intracranial vasculature and neck separately. For radiation dose reduction, the following was used: automated exposure control, adjustment of mA and/or kV according to patient size. COMPARISON: [facility], CT, CT HEAD/BRAIN WO CON, 08/11/2024, 12:42. FINDINGS: Image quality: Limited by bolus timing, with venous contamination. There is streak artifact seen through the level of the shoulders. Cerebral CT Angiogram: Internal carotid arteries: No acute findings. Intracranial ICA are patent with no significant stenosis. No occlusion. No aneurysm. Anterior cerebral arteries: The A1 segments are asymmetric, with have aplastic right A1 segment and a corresponding liver past left A2 segment. The anterior cerebral artery system is otherwise normal and symmetric. No significant stenosis. No occlusion. No aneurysm. Middle cerebral arteries: Unremarkable. No significant stenosis. No occlusion. No aneurysm. Posterior cerebral arteries: Note is made of a type origin of the right posterior cerebral artery. The posterior cerebral arteries are otherwise normal and symmetric. No significant stenosis. No occlusion. No aneurysm. Basilar artery: Unremarkable. No significant stenosis. No occlusion. No aneurysm. Vertebral arteries: Unremarkable as visualized. Dural venous sinuses: Unremarkable given phase of enhancement. Other: Arterial phase appearance of the brain parenchyma is unremarkable. Neck CT Angiogram: Internal carotid arteries: Unremarkable. No significant stenosis. No dissection or occlusion. Common carotid arteries: Unremarkable. No significant stenosis. No dissection or occlusion. External carotid arteries: Unremarkable. No occlusion. Vertebral arteries: Unremarkable. No significant stenosis. No dissection or occlusion. Aortic Arch and Mediastinum: Partially visualized aortic arch unremarkable without evidence of aneurysm. Note is made of an aberrant right subclavian artery, which runs posterior to the esophagus. Other: Arterial phase soft tissues of the neck and chest are unremarkable. Moderate cervical spine degenerative changes can be seen, which are worst inferiorly IMPRESSION: No significant intracranial arterial abnormality is seen. No significant abnormality is seen within the arteries of the neck. Additional findings: Paftsp-rv-Rztqsp developmental anomalies Moderate cervical spine degenerative change Aberrant right subclavian artery Any quantitative measurements of stenosis were performed using NASCET criteria. Dictated by: Simon Gutierrez M.D. on 08/11/2024 at 12:46 Approved by: Simon Gutierrez M.D. on 08/11/2024 at 12:48
--- NOTE | 2024-08-11 12:00 | DI.CT.S_ITS ---
PROCEDURE: CT HEAD/BRAIN WO CON INDICATIONS: Dizziness TECHNIQUE: Noncontrast 4.5 mm thick angled axial sections acquired from the foramen magnum to the vertex, with coronal and sagittal reformats. For radiation dose reduction, the following was used: automated exposure control, adjustment of mA and/or kV according to patient size. COMPARISON: [facility], CT, CT ANGIO HEAD AND NECK, 08/11/2024, 12:42. FINDINGS: Image quality: Diagnostic. CSF spaces: Basal cisterns are patent. No extra-axial fluid collections. The ventricles are symmetric in size and shape. Brain: No intracranial bleeds or mass effect. There is cerebral volume loss, with resultant ventricular and sulcal prominence. There are periventricular and deep white matter chronic small vessel ischemic changes. There is intracranial internal carotid artery atherosclerosis. Skull and face: Calvarium and visualized facial bones appear intact, without suspicious lesions. Sinuses: Visualized sinuses and mastoids are clear. IMPRESSION: No imaging explanation is found for this patient's presenting symptoms. To the limits of this noncontrast study, no findings of intracranial masses or mass effect can be seen. Dictated by: Simon Gutierrez M.D. on 08/11/2024 at 12:45 Approved by: Simon Gutierrez M.D. on 08/11/2024 at 12:45
--- NOTE | 2024-08-11 12:04 | EKG_ITS ---
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
[2024-08-11 12:16] LABS: Add Manual Diff / Slide Review NO; Basophils Absolute Auto 100 /uL (0-100); Basophils Percent Auto 0.9 % (0-2); Eosinophils Absolute Auto 100 /uL (0-450); Eosinophils Percent Auto 0.7 % (2-4); Hematocrit 43.3 % (36-46); Hemoglobin 14.6 g/dL (12.0-16.0); Lymphocytes Absolute Auto 1800 /uL (1100-4500); Mean Corpuscular HGB Conc 33.8 % (30-36); Mean Corpuscular Hemoglobin 30.6 PG (26-34); Mean Corpuscular Volume 90.5 fL (80-100); Monocytes Absolute Auto 700 /uL (0-900); Monocytes Percent Auto 7.2 % (3-14); Neutrophils Absolute Auto 6500 /uL (1500-7000); Neutrophils Percent Auto 71.2 % (50-75); Platelet Count 226 X10^3/uL (150-400); Red Blood Cell Count 4.79 X10^6/uL (4.0-5.2); White Blood Cell Count 9.2 X10^3/uL (4.5-11.0)
--- NOTE | 2024-08-11 12:21 | ED_ITS ---
HPI - Dizziness <Len North MD - Last Filed: 08/15/24 08:08> General Chief Complaint: Dizziness Stated Complaint: Dizzy, N/V Time Seen by Provider: 08/11/24 12:00 Source: patient Mode of arrival: EMS History of Present Illness HPI Narrative: Patient here for dizziness like the room is spinning with nausea and vomiting. Onset last night at 9:00 p.m.. More than 12 hours ago. Symptoms have resolved. No chest pain no palpitations no black or bloody stools. No prior history of heart attack strokes, she does have diabetes. No history of hypertension. She does take cholesterol medication and baby aspirin daily. Patient sees primary care locally. EMS reports blood sugar 152. On their monitoring analyst patient has had bigeminy. Related Data Home Medications ?Medication ?Instructions ?Recorded ?Confirmed acetaminophen 500 mg capsule 500 mg PO DAILY PRN 05/0707/11/24 meloxicam 7.5 mg tablet 7.5 - 15 mg PO DAILY PRN angelito n 06/03/23 07/11/24 Previous Rx's ?Medication ?Instructions ?Recorded Disabled Parking 1 ea Not Applicable DAILY #1 ea 12/01/22 fluticasone propionate 50 1 spray intranasal DAILY #16 grams 06/03/23 mcg/actuation nasal spray,suspension (Flonase Allergy Relief) omeprazole 20 mg capsule,delayed 20 mg PO DAILY #90 ca ps 10/01/23 release hydrochlorothiazide 25 mg tablet 25 mg PO DAILY #90 ta bs 01/04/24 semaglutide 0.25 mg or 0.5 mg (2 0.25 mg (0.368 mL) ROSE BCUT QWEEK #3 04/18/24 mg/3 mL) subcutaneous pen injector mL rosuvastatin 20 mg tablet 20 mg PO DAILY #90 tabs 06/08 04/02 bupropion HCl 150 mg 24 hr tablet, 150 mg PO QAM #30 t abs 07/11/24 extended release (Wellbutrin XL) cefdinir 300 mg capsule 300 mg PO BID 10 days #20 ca ps 08/11/24 Allergies Allergy/AdvReac Type Severity Reaction Status Date / Time codeine AdvReac Intermediate Nausea Verified 07/11/24 14:30 Review of Systems <Len North MD - Last Filed: 08/15/24 08:08> Review of Systems Narrative: GENERAL: Negative chills, fatigue, malaise, fever, sweats. HEENT: Negative sinus pain, ear pain, sore throat RESPIRATORY: Negative dyspnea, cough CARDIOVASCULAR: Negative chest pain, palpitations GASTROINTESTINAL: Positive vomiting, nausea, negative abdominal pain : Negative dysuria, frequency, hematuria MUSCULOSKELETAL: Negative muscle or bony pain SKIN: Negative rash, skin lesions NEUROLOGIC: Negative weakness, numbness, positive dizziness Patient History <Len North MD - Last Filed: 08/15/24 08:08> Medical History (Updated 08/15/24 @ 08:08 by Len North MD) Cough DM type 2 with diabetic dyslipidemia Foot pain Primary osteoarthritis involving multiple joints Impaired fasting glucose Mixed hyperlipidemia Hiatal hernia Insomnia GERD (gastroesophageal reflux disease) Surgical History Cystocele with prolapse History of cholecystectomy H/O hernia repair History of hysterectomy Family History Mother Heart disease Social History marital status: details: 2018, two grown children, 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 EYES: Pupils equal round ENT: Mucous membranes moist. NECK: Trachea midline. CARDIOVASCULAR: Regular rate and rhythm RESPIRATORY: Clear to auscultation. Breath sounds equal bilaterally. No wheezes, rales, or rhonchi. GASTROINTESTINAL: Abdomen soft, non-tender EXTREMITIES: No gross deformities. BACK: No flank tenderness. NEURO: AOx4. Clear speech no facial droop light touch intact to bilateral face hands and legs. Strong equal set up mechanic. Negative pronator drift. Wdiwmh-fr-zufl intact. Elevate each leg without drift. SKIN: Warm and dry PSYCH: Not anxious, is cooperative Initial Vital Signs Initial Vital Signs: Vital Signs Temperature 98 F 08/11/24 11:55 Pulse Rate 79 08/11/24 11:55 Respiratory Rate 22 08/11/24 11:55 Blood Pressure 148/61 H 08/11/24 11:55 Pulse Oximetry 96 08/11/24 11:55 Oxygen Delivery Method Room Air 08/11/24 11:55 <Lulú Alicia DO - Last Filed: 08/12/24 06:57> Initial Vital Signs Initial Vital Signs: Vital Signs Temperature 98 F 08/11/24 11:55 Pulse Rate 79 08/11/24 11:55 Respiratory Rate 22 08/11/24 11:55 Blood Pressure 148/61 H 08/11/24 11:55 Pulse Oximetry 96 08/11/24 11:55 Oxygen Delivery Method Room Air 08/11/24 11:55 Scores <Len North MD - Last Filed: 08/15/24 08:08> NIH Stroke Scale Level of Conciousness: Alert, keenly responsive Ask month/age: Answers both questions correctly. Open/close eyes, close hand: Performs both tasks correctly Best gaze horizontal: Normal Visual haji: No visual loss Facial palsy: Normal symetrical movement Left arm drift: No drift for full 10 sec Right arm drift: No drift for full 10 sec Left leg drift: No drift for full 5 sec Right leg drift: No drift for full 5 sec Limb ataxia: Absent Sensory on face/arms/legs: Normal, no sensory loss Best language: No aphasia, normal Dysarthria: Normal Extinction or inattention: No abnormality Total NIH Stroke scale score: 0 <Lulú Alicia DO - Last Filed: 08/12/24 06:57> NIH Stroke Scale Total NIH Stroke scale score: 0 Course <Len North MD - Last Filed: 08/15/24 08:08> Orders Ordered: Discontinued Medications Cefdinir (Cefdinir 300 Mg Capsule) 300 mg PO NOW ONE Stop: 08/11/24 15:29 Last Admin: 08/11/24 15:41 Dose: 300 mg Documented By: TRISHA Sodium Chloride (Normal Saline 0.9%) 1,000 mls @ 1,000 mls/hr IV BOLUS ONE Stop: 08/11/24 12:59 Last Infusion: 08/11/24 13:42 Dose: Infused Documented By: Admin: 08/11/24 12:37 Dose: 1,000 mls/hr Documented By: TRISHA Ondansetron HCl (Ondansetron 4 Mg/2 Ml Inj) 4 mg IV NOW ONE Stop: 08/11/24 12:01 Last Admin: 08/11/24 12:37 Dose: 4 mg Documented By: TRISHA Vital Signs Vital signs: Vital Signs - 8 hr 08/11/24 11:55 08/11/24 12:07 08/11/24 12:08 Temperature 98 F Pulse Rate 79 417 H 96 H Respiratory Rate 22 23 Blood Pressure 148/61 H Pulse Oximetry 96 95 95 Oxygen Delivery Method Room Air 08/11/24 12:08 08/11/24 12:30 08/11/24 12:30 Temperature Pulse Rate 78 Respiratory Rate 19 Blood Pressure 148/61 H 141/65 H Pulse Oximetry 95 Oxygen Delivery Method 08/11/24 12:59 08/11/24 12:59 08/11/24 13:00 Temperature Pulse Rate 80 Respiratory Rate 21 Blood Pressure 95/52 L 159/68 H Pulse Oximetry 96 Oxygen Delivery Method 08/11/24 13:00 08/11/24 13:30 08/11/24 13:30 Temperature Pulse Rate 78 68 Respiratory Rate 13 12 Blood Pressure 160/70 H Pulse Oximetry 95 95 Oxygen Delivery Method 08/11/24 14:00 08/11/24 14:00 08/11/24 14:30 Temperature Pulse Rate 78 Respiratory Rate 16 Blood Pressure 144/71 H 149/70 H Pulse Oximetry 95 Oxygen Delivery Method 08/11/24 14:30 08/11/24 17:34 Temperature Pulse Rate 78 73 Respiratory Rate 18 15 Blood Pressure 149/70 H Pulse Oximetry 96 97 Oxygen Delivery Method <Lulú Alicia, - Last Filed: 08/12/24 06:57> Orders Ordered: Discontinued Medications Cefdinir (Cefdinir 300 Mg Capsule) 300 mg PO NOW ONE Stop: 08/11/24 15:29 Last Admin: 08/11/24 15:41 Dose: 300 mg Documented By: TRISHA Sodium Chloride (Normal Saline 0.9%) 1,000 mls @ 1,000 mls/hr IV BOLUS ONE Stop: 08/11/24 12:59 Last Infusion: 08/11/24 13:42 Dose: Infused Documented By: Admin: 08/11/24 12:37 Dose: 1,000 mls/hr Documented By: TRISHA Ondansetron HCl (Ondansetron 4 Mg/2 Ml Inj) 4 mg IV NOW ONE Stop: 08/11/24 12:01 Last Admin: 08/11/24 12:37 Dose: 4 mg Documented By: TRISHA Vital Signs Vital signs: Vital Signs - 8 hr 08/11/24 11:55 08/11/24 12:07 08/11/24 12:08 Temperature 98 F Pulse Rate 79 417 H 96 H Respiratory Rate 22 23 Blood Pressure 148/61 H Pulse Oximetry 96 95 95 Oxygen Delivery Method Room Air 08/11/24 12:08 08/11/24 12:30 08/11/24 12:30 Temperature Pulse Rate 78 Respiratory Rate 19 Blood Pressure 148/61 H 141/65 H Pulse Oximetry 95 Oxygen Delivery Method 08/11/24 12:59 08/11/24 12:59 08/11/24 13:00 Temperature Pulse Rate 80 Respiratory Rate 21 Blood Pressure 95/52 L 159/68 H Pulse Oximetry 96 Oxygen Delivery Method 08/11/24 13:00 08/11/24 13:30 08/11/24 13:30 Temperature Pulse Rate 78 68 Respiratory Rate 13 12 Blood Pressure 160/70 H Pulse Oximetry 95 95 Oxygen Delivery Method 08/11/24 14:00 08/11/24 14:00 08/11/24 14:30 Temperature Pulse Rate 78 Respiratory Rate 16 Blood Pressure 144/71 H 149/70 H Pulse Oximetry 95 Oxygen Delivery Method 08/11/24 14:30 08/11/24 17:34 Temperature Pulse Rate 78 73 Respiratory Rate 18 15 Blood Pressure 149/70 H Pulse Oximetry 96 97 Oxygen Delivery Method MDM - Dizziness <Len North MD - Last Filed: 08/15/24 08:08> Lab Data 08/11/24 12:04 08/11/24 12:04 Labs: Lab Results 08/11/24 08/11/24 08/11/24 Range/Units 12:04 12:11 14:56 WBC 9.2 (4.5-11.0) X10^3/uL RBC 4.79 (4.0-5.2) X10^6/uL Hgb 14.6 (12.0-16.0) g/dL Hct 43.3 (36-46) % MCV 90.5 (80-100) fL MCH 30.6 (26-34) PG MCHC 33.8 (30-36) % RDW 13.0 (11.6-14.8) % Plt Count 226 (150-400) X10^3/uL Neut % (Auto) 71.2 (50-75) % Lymph % (Auto) 20.0 L (25-40) % Story % (Auto) 7.2 (3-14) % Eos % (Auto) 0.7 L (2-4) % Baso % (Auto) 0.9 (0-2) % Neut # (Auto) 6500 (2494-4724) /uL Lymph # (Auto) 1800 (7452-8046) /uL Story # (Auto) 700 (0-900) /uL Eos # (Auto) 100 (0-450) /uL Baso # (Auto) 100 (0-100) /uL PT 11.8 (9.4-12.5) SECONDS INR 1.0 (0.9-1.3) APTT 32 (25.1-36.5) SECONDS Sodium 137 (137-145) mmol/L Potassium 4.3 (3.4-5.1) mmol/L Chloride 99 (98-107) mmol/L Carbon Dioxide 31 (22-32) mmol/L BUN 15 (7-17) mg/dL Creatinine 0.63 (0.52-1.04) mg/dL Estimated GFR > 60 (>60) mL/min BUN/Creatinine Ratio 23.8 H (6-22) Glucose 130 H (70-99) mg/dL Calcium 8.9 (8.4-10.2) mg/dL Magnesium 1.6 (1.6-2.3) mg/dL Total Bilirubin 2.6 H (0.2-1.3) mg/dL AST 52 H (14-36) IU/L ALT 22 (<35) IU/L Alkaline Phosphatase 47 (38-126) U/L Total Creatine Kinase 57 (30-135) U/L Troponin I 0.016 (0.01-0.034) ng/mL Total Protein 7.4 (6.3-8.2) g/dL Albumin 4.3 (3.5-5.0) g/dL Globulin 3.1 (1.7-4.1) g/dL Albumin/Globulin Ratio 1.4 (1.0-2.8) Urine Color Yellow Urine Appearance Sl cloudy Urine pH 6.0 (4.5-8.0) Ur Specific [place] 1.010 (1.000-1.035) Urine Protein Negative (Negative) Urine Glucose (UA) Negative (Negative) g/dL Urine Ketones Negative (NEGATIVE) Urine Occult Blood Trace-intact (Negative) Urine Nitrate Positive H (Negative) Urine Bilirubin Negative (NEGATIVE) Urine Urobilinogen 0.2 (0.2) E.U./dL Ur Leukocyte Esterase 1+ H (NEGATIVE) Urine RBC 1-5/hpf (0-5/HPF) Urine WBC 10-30/hpf H (0-5/HPF) Ur Squamous Epith Cells 1-5 /hpf (0-5/HPF) Urine Bacteria Moderate (10-30) H (None) Ur Culture Indicated? Cult not indicated Vol Urine Centrifuged 10ml (spun) 08/11/24 Range/Units 15:34 WBC (4.5-11.0) X10^3/uL RBC (4.0-5.2) X10^6/uL Hgb (12.0-16.0) g/dL Hct (36-46) % MCV (80-100) fL MCH (26-34) PG MCHC (30-36) % RDW (11.6-14.8) % Plt Count (150-400) X10^3/uL Neut % (Auto) (50-75) % Lymph % (Auto) (25-40) % Story % (Auto) (3-14) % Eos % (Auto) (2-4) % Baso % (Auto) (0-2) % Neut # (Auto) (3395-2974) /uL Lymph # (Auto) (8028-3632) /uL Story # (Auto) (0-900) /uL Eos # (Auto) (0-450) /uL Baso # (Auto) (0-100) /uL PT (9.4-12.5) SECONDS INR (0.9-1.3) APTT (25.1-36.5) SECONDS Sodium (137-145) mmol/L Potassium (3.4-5.1) mmol/L Chloride (98-107) mmol/L Carbon Dioxide (22-32) mmol/L BUN (7-17) mg/dL Creatinine (0.52-1.04) mg/dL Estimated GFR (>60) mL/min BUN/Creatinine Ratio (6-22) Glucose (70-99) mg/dL Calcium (8.4-10.2) mg/dL Magnesium (1.6-2.3) mg/dL Total Bilirubin (0.2-1.3) mg/dL AST (14-36) IU/L ALT (<35) IU/L Alkaline Phosphatase (38-126) U/L Total Creatine Kinase 44 (30-135) U/L Troponin I < 0.012 (0.01-0.034) ng/mL Total Protein (6.3-8.2) g/dL Albumin (3.5-5.0) g/dL Globulin (1.7-4.1) g/dL Albumin/Globulin Ratio (1.0-2.8) Urine Color Urine Appearance Urine pH (4.5-8.0) Ur Specific [place] (1.000-1.035) Urine Protein (Negative) Urine Glucose (UA) (Negative) g/dL Urine Ketones (NEGATIVE) Urine Occult Blood (Negative) Urine Nitrate (Negative) Urine Bilirubin (NEGATIVE) Urine Urobilinogen (0.2) E.U./dL Ur Leukocyte Esterase (NEGATIVE) Urine RBC (0-5/HPF) Urine WBC (0-5/HPF) Ur Squamous Epith Cells (0-5/HPF) Urine Bacteria (None) Ur Culture Indicated? Vol Urine Centrifuged Imaging Data CT scan - head: Radiologist's Impression: [address] [address] [address] Scan Report Signed Patient: Sharon Alfaro MR#: [id number] : 1950 Acct:[id number] Age/Sex: 73 / F Date of Service: 08/11/24 Loc: ED Accession Number: [id number] Procedure: CT head/brain wo con Ordering Provider: Len North MD PROCEDURE: CT HEAD/BRAIN WO CON INDICATIONS: Dizziness TECHNIQUE: Noncontrast 4.5 mm thick angled axial sections acquired from the foramen magnum to the vertex, with coronal and sagittal reformats. For radiation dose reduction, the following was used: automated exposure control, adjustment of mA and/or kV according to patient size. COMPARISON: [facility], CT, CT ANGIO HEAD AND NECK, 08/11/2024, 12:42. FINDINGS: Image quality: Diagnostic. CSF spaces: Basal cisterns are patent. No extra-axial fluid collections. The ventricles are symmetric in size and shape. Brain: No intracranial bleeds or mass effect. There is cerebral volume loss, with resultant ventricular and sulcal prominence. There are periventricular and deep white matter chronic small vessel ischemic changes. There is intracranial internal carotid artery atherosclerosis. Skull and face: Calvarium and visualized facial bones appear intact, without suspicious lesions. Sinuses: Visualized sinuses and mastoids are clear. IMPRESSION: No imaging explanation is found for this patient's presenting symptoms. To the limits of this noncontrast study, no findings of intracranial masses or mass effect can be seen. Dictated by: Simon Gutierrez M.D. on 08/11/2024 at 12:45 Approved by: Simon Gutierrez M.D. on 08/11/2024 at 12:45 CTA - brain/neck: Radiologist's Impression: [place] [address] CT Scan Report Signed Patient: Sharon Alfaro MR#: [id number] : 1950 Acct:[id number] Age/Sex: 73 / F Date of Service: 08/11/24 Loc: ED Accession Number: [id number] Procedure: CT angio head and neck Ordering Provider: Len North MD PROCEDURE: CT ANGIO HEAD AND NECK INDICATIONS: Dizziness TECHNIQUE: After the administration of intravenous contrast, 1 mm thick sections acquired from the aortic arch through the [place] of [place]. 3-dimensional ltystcr-wzarbwkcl-wwbutjyonv (MIP) and/or volume rendering reformats were acquired of the central intracranial vasculature and neck separately. For radiation dose reduction, the following was used: automated exposure control, adjustment of mA and/or kV according to patient size. COMPARISON: [facility], CT, CT HEAD/BRAIN WO CON, 08/11/2024, 12:42. FINDINGS: Image quality: Limited by bolus timing, with venous contamination. There is streak artifact seen through the level of the shoulders. Cerebral CT Angiogram: Internal carotid arteries: No acute findings. Intracranial ICA are patent with no significant stenosis. No occlusion. No aneurysm. Anterior cerebral arteries: The A1 segments are asymmetric, with have aplastic right A1 segment and a corresponding liver past left A2 segment. The anterior cerebral artery system is otherwise normal and symmetric. No significant stenosis. No occlusion. No aneurysm. Middle cerebral arteries: Unremarkable. No significant stenosis. No occlusion. No aneurysm. Posterior cerebral arteries: Note is made of a type origin of the right posterior cerebral artery. The posterior cerebral arteries are otherwise normal and symmetric. No significant stenosis. No occlusion. No aneurysm. Basilar artery: Unremarkable. No significant stenosis. No occlusion. No aneurysm. Vertebral arteries: Unremarkable as visualized. Dural venous sinuses: Unremarkable given phase of enhancement. Other: Arterial phase appearance of the brain parenchyma is unremarkable. Neck CT Angiogram: Internal carotid arteries: Unremarkable. No significant stenosis. No dissection or occlusion. Common carotid arteries: Unremarkable. No significant stenosis. No dissection or occlusion. External carotid arteries: Unremarkable. No occlusion. Vertebral arteries: Unremarkable. No significant stenosis. No dissection or occlusion. Aortic Arch and Mediastinum: Partially visualized aortic arch unremarkable without evidence of aneurysm. Note is made of an aberrant right subclavian artery, which runs posterior to the esophagus. Other: Arterial phase soft tissues of the neck and chest are unremarkable. Moderate cervical spine degenerative changes can be seen, which are worst inferiorly IMPRESSION: No significant intracranial arterial abnormality is seen. No significant abnormality is seen within the arteries of the neck. Additional findings: Vhirmf-cr-Nuggsw developmental anomalies Moderate cervical spine degenerative change Aberrant right subclavian artery Any quantitative measurements of stenosis were performed using NASCET criteria. Dictated by: Simon Gutierrez M.D. on 08/11/2024 at 12:46 Approved by: Simon Gutierrez M.D. on 08/11/2024 at 12:48 [facility] Narrative Medical decision making narrative: Patient here for dizziness like the room is spinning with nausea and vomiting. Onset last night at 9:00 p.m.. More than 12 hours ago. Symptoms have resolved. No chest pain no palpitations no black or bloody stools. No prior history of heart attack strokes, she does have diabetes. No history of hypertension. She does take cholesterol medication and baby aspirin daily. Patient sees primary care locally. EMS reports blood sugar 152. On their monitoring analyst patient has had bigeminy. After history and exam, CBC CMP troponin magnesium EKG CT head CT angio head and neck normal saline Zofran [facility] Medical records reviewed: No recent visit for this complaint Differential considered: Includes but not limited to STEMI non-STEMI TIA stroke vertigo labyrinthitis Lab Test results independently reviewed as above. Pertinent findings: WBC 9.2 hemoglobin 14.6 INR 1.0 sodium 137 potassium 4.3 BUN 15 creatinine 0.63 GFR greater than 60 glucose 130 troponin 0.016 repeat troponin less than 0.012 Independently reviewed EKG sinus rhythm with frequent PVCs. At times appears to be bigeminy on monitor. Rate 75 Imaging studies independently reviewed: CT head CT angiogram head and neck no acute finding Consultations: Re-evaluations: 2:51 p.m.. Patient remains asymptomatic. MRI of the brain will be ordered. She agrees. Likely at this time vertigo causing her symptoms. Family at bedside. Discussion: 6:00 p.m.. Brennick: Sign out to Dr Alicia, MRI is pending. Patient likely has vertigo. Patient has been symptom-free during course of stay. Laboratory studies and imaging studies are reassuring. Patient will need prescription for UTI. Omnicef was given here. Diagnosis: Vertigo <Lulú Alicia, DO - Last Filed: 08/12/24 06:57> Lab Data Labs: Lab Results 08/11/24 08/11/24 08/11/24 Range/Units 12:04 12:11 14:56 WBC 9.2 (4.5-11.0) X10^3/uL RBC 4.79 (4.0-5.2) X10^6/uL Hgb 14.6 (12.0-16.0) g/dL Hct 43.3 (36-46) % MCV 90.5 (80-100) fL MCH 30.6 (26-34) PG MCHC 33.8 (30-36) % RDW 13.0 (11.6-14.8) % Plt Count 226 (150-400) X10^3/uL Neut % (Auto) 71.2 (50-75) % Lymph % (Auto) 20.0 L (25-40) % Story % (Auto) 7.2 (3-14) % Eos % (Auto) 0.7 L (2-4) % Baso % (Auto) 0.9 (0-2) % Neut # (Auto) 6500 (7706-1702) /uL Lymph # (Auto) 1800 (4011-0602) /uL Story # (Auto) 700 (0-900) /uL Eos # (Auto) 100 (0-450) /uL Baso # (Auto) 100 (0-100) /uL PT 11.8 (9.4-12.5) SECONDS INR 1.0 (0.9-1.3) APTT 32 (25.1-36.5) SECONDS Sodium 137 (137-145) mmol/L Potassium 4.3 (3.4-5.1) mmol/L Chloride 99 (98-107) mmol/L Carbon Dioxide 31 (22-32) mmol/L BUN 15 (7-17) mg/dL Creatinine 0.63 (0.52-1.04) mg/dL Estimated GFR > 60 (>60) mL/min BUN/Creatinine Ratio 23.8 H (6-22) Glucose 130 H (70-99) mg/dL Calcium 8.9 (8.4-10.2) mg/dL Magnesium 1.6 (1.6-2.3) mg/dL Total Bilirubin 2.6 H (0.2-1.3) mg/dL AST 52 H (14-36) IU/L ALT 22 (<35) IU/L Alkaline Phosphatase 47 (38-126) U/L Total Creatine Kinase 57 (30-135) U/L Troponin I 0.016 (0.01-0.034) ng/mL Total Protein 7.4 (6.3-8.2) g/dL Albumin 4.3 (3.5-5.0) g/dL Globulin 3.1 (1.7-4.1) g/dL Albumin/Globulin Ratio 1.4 (1.0-2.8) Urine Color Yellow Urine Appearance Sl cloudy Urine pH 6.0 (4.5-8.0) Ur Specific [place] 1.010 (1.000-1.035) Urine Protein Negative (Negative) Urine Glucose (UA) Negative (Negative) g/dL Urine Ketones Negative (NEGATIVE) Urine Occult Blood Trace-intact (Negative) Urine Nitrate Positive H (Negative) Urine Bilirubin Negative (NEGATIVE) Urine Urobilinogen 0.2 (0.2) E.U./dL Ur Leukocyte Esterase 1+ H (NEGATIVE) Urine RBC 1-5/hpf (0-5/HPF) Urine WBC 10-30/hpf H (0-5/HPF) Ur Squamous Epith Cells 1-5 /hpf (0-5/HPF) Urine Bacteria Moderate (10-30) H (None) Ur Culture Indicated? Cult not indicated Vol Urine Centrifuged 10ml (spun) 08/11/24 Range/Units 15:34 WBC (4.5-11.0) X10^3/uL RBC (4.0-5.2) X10^6/uL Hgb (12.0-16.0) g/dL Hct (36-46) % MCV (80-100) fL MCH (26-34) PG MCHC (30-36) % RDW (11.6-14.8) % Plt Count (150-400) X10^3/uL Neut % (Auto) (50-75) % Lymph % (Auto) (25-40) % Story % (Auto) (3-14) % Eos % (Auto) (2-4) % Baso % (Auto) (0-2) % Neut # (Auto) (3789-6416) /uL Lymph # (Auto) (6414-4808) /uL Story # (Auto) (0-900) /uL Eos # (Auto) (0-450) /uL Baso # (Auto) (0-100) /uL PT (9.4-12.5) SECONDS INR (0.9-1.3) APTT (25.1-36.5) SECONDS Sodium (137-145) mmol/L Potassium (3.4-5.1) mmol/L Chloride (98-107) mmol/L Carbon Dioxide (22-32) mmol/L BUN (7-17) mg/dL Creatinine (0.52-1.04) mg/dL Estimated GFR (>60) mL/min BUN/Creatinine Ratio (6-22) Glucose (70-99) mg/dL Calcium (8.4-10.2) mg/dL Magnesium (1.6-2.3) mg/dL Total Bilirubin (0.2-1.3) mg/dL AST (14-36) IU/L ALT (<35) IU/L Alkaline Phosphatase (38-126) U/L Total Creatine Kinase 44 (30-135) U/L Troponin I < 0.012 (0.01-0.034) ng/mL Total Protein (6.3-8.2) g/dL Albumin (3.5-5.0) g/dL Globulin (1.7-4.1) g/dL Albumin/Globulin Ratio (1.0-2.8) Urine Color Urine Appearance Urine pH (4.5-8.0) Ur Specific [place] (1.000-1.035) Urine Protein (Negative) Urine Glucose (UA) (Negative) g/dL Urine Ketones (NEGATIVE) Urine Occult Blood (Negative) Urine Nitrate (Negative) Urine Bilirubin (NEGATIVE) Urine Urobilinogen (0.2) E.U./dL Ur Leukocyte Esterase (NEGATIVE) Urine RBC (0-5/HPF) Urine WBC (0-5/HPF) Ur Squamous Epith Cells (0-5/HPF) Urine Bacteria (None) Ur Culture Indicated? Vol Urine Centrifuged [facility] Narrative Medical decision making narrative: Patient here for dizziness like the room is spinning with nausea and vomiting. Onset last night at 9:00 p.m.. More than 12 hours ago. Symptoms have resolved. No chest pain no palpitations no black or bloody stools. No prior history of heart attack strokes, she does have diabetes. No history of hypertension. She does take cholesterol medication and baby aspirin daily. Patient sees primary care locally. EMS reports blood sugar 152. On their monitoring analyst patient has had bigeminy. After history and exam, CBC CMP troponin magnesium EKG CT head CT angio head and neck normal saline Zofran [facility] Medical records reviewed: No recent visit for this complaint Differential considered: Includes but not limited to STEMI non-STEMI TIA stroke vertigo labyrinthitis Lab Test results independently reviewed as above. Pertinent findings: WBC 9.2 hemoglobin 14.6 INR 1.0 sodium 137 potassium 4.3 BUN 15 creatinine 0.63 GFR greater than 60 glucose 130 troponin 0.016 repeat troponin less than 0.012 Independently reviewed EKG sinus rhythm with frequent PVCs. At times appears to be bigeminy on monitor. Rate 75 Imaging studies independently reviewed: CT head CT angiogram head and neck no acute finding Consultations: Re-evaluations: 2:51 p.m.. Patient remains asymptomatic. MRI of the brain will be ordered. She agrees. Likely at this time vertigo causing her symptoms. Family at bedside. Discussion: 6:00 p.m.. Can: Sign out to Dr Alicia, MRI is pending. Patient likely has vertigo. Patient has been symptom-free during course of stay. Laboratory studies and imaging studies are reassuring. Patient will need prescription for UTI. Omnicef was given here. Diagnosis: Vertigo 08/11/2024 Dr. Alicia: Patient signed out to myself by Dr. North. Patient was seen and evaluated had vertigo-like symptoms is currently asymptomatic ambulating without issues workup shows UTI with plan for treatment with oral antibiotics. Patient had MR to evaluate for stroke versus other cause of her vertigo like symptoms. Patient has MR is currently pending. MR brain without acute intracranial abnormalities no evidence for cerebral infarction. No evidence of mass or mass effect. Age-related senescent changes and sequela of chronic small-vessel ischemic disease. Discharge Plan Departure Patient Disposition: Home Clinical Impression: Vertigo UTI (urinary tract infection) Qualifiers: Urinary tract infection type: site unspecified Hematuria presence: without hematuria Qualified Code(s): N39.0 - Urinary tract infection, site not specified Instructions: DI for Vertigo Activity Restrictions/Additional Instructions: Your workup today shows what appears to be a UTI or infection in your bladder, take oral antibiotics until completed. Prescription sent to [facility] in [place]. If you have recurrent symptoms vertigo symptoms that are mild you can take meclizine (Bonivert) 1-2 tablets [id number] every 6 hours as needed. Some individuals we will follow up with ENT if they have persistent or recurrent symptoms. Please return to have severe headaches, inability to ambulate safely, new numbness, weakness or difficulty with movement, persistent vomiting or other new or concerning changes. Prescriptions: New cefdinir 300 mg capsule 300 mg PO BID 10 Days Qty: 20 0RF No Action meloxicam 7.5 mg tablet 7.5 - 15 mg PO DAILY PRN (Reason: pain) fluticasone propionate [Flonase Allergy Relief] 50 mcg/actuation spray,suspension 1 spray intranasal DAILY Qty: 16 0RF Rx Instructions: administer into each nostril bupropion HCl [Wellbutrin XL] 150 mg tablet extended release 24 hr 150 mg PO QAM Qty: 30 3RF acetaminophen 500 mg capsule 500 mg PO DAILY PRN omeprazole 20 mg capsule,delayed release(DR/EC) 20 mg PO DAILY Qty: 90 0RF Rx Instructions: APPT DUE WITH PCP PRIOR TO END OF RX/FUTURE FILLS. PLEASE CALL TO SCHEDULE FUTURE APPT. THANKS 10/01/23. hydrochlorothiazide 25 mg tablet 25 mg PO DAILY Qty: 90 3RF semaglutide 0.25 mg or 0.5 mg (2 mg/3 mL) pen injector 0.25 mg SUBCUT QWEEK Qty: 3 3RF rosuvastatin 20 mg tablet 20 mg PO DAILY Qty: 90 4RF Disabled Parking Permit 1 ea Not Applicable DAILY Qty: 1 0RF Referrals: Niraj Pitts MD [Physician, Ear, Nose, Throat] Yary Aguilar MD [Primary Care Provider, Family Practice] Stand Alone Forms: Patient Portal/API
[2024-08-11 12:22] LABS: Prothrombin Time 11.8 SECONDS (9.4-12.5)
[2024-08-11 12:25] LABS: PTT Partial Thromboplastin Tim 32 SECONDS (25.1-36.5)
[2024-08-11 12:26] LABS: Alanine Aminotransferase 22 IU/L (<35); Albumin 4.3 g/dL (3.5-5.0); Albumin Globulin Ratio 1.4 (1.0-2.8); Alkaline Phosphatase 47 U/L (38-126); Aspartate Aminotransferase 52 IU/L (14-36); BUN Creatinine Ratio 23.8 (6-22); Bilirubin Total 2.6 mg/dL (0.2-1.3); Blood Urea Nitrogen 15 mg/dL (7-17); Calcium 8.9 mg/dL (8.4-10.2); Carbon Dioxide 31 mmol/L (22-32); Chloride 99 mmol/L (98-107); Creatine Kinase 57 U/L (30-135); Estimated Glomerular Filt Rate > 60 mL/min (>60); Globulin 3.1 g/dL (1.7-4.1); Glucose 130 mg/dL (70-99); HEMOLYSIS 231 (0-50); Potassium 4.3 mmol/L (3.4-5.1); Sodium 137 mmol/L (137-145); Total Protein 7.4 g/dL (6.3-8.2)
[2024-08-11] MEDS: ONDANSETRON 4 MG/2 ML INJ IV (12:37)
[2024-08-11] MEDS: SODIUM CHLORIDE 0.9% 1,000 ML 1000 ML IV (12:37)
[2024-08-11 12:38] LABS: Troponin I 0.016 ng/mL (0.01-0.034)
--- NOTE | 2024-08-11 12:47 | PC.NURSE ---
pt denies chest pain, chest pressure, SOB. She does state that her face feels pressure around her sinuses.
[2024-08-11 13:49] LABS: Magnesium 1.6 mg/dL (1.6-2.3)
--- NOTE | 2024-08-11 14:41 | PC.NURSE ---
Pt ambulated to the restroom and bent down to tie her shoes then states Don't worry I'll get it! She was asked who she was expecting to tie her shoes and she stated Marce, referring to her daughter who was in the room but didn't respond. She was asked if Marce always tied her shoes and she stated well no but I'm not always in this situation. She denied dizziness, lighheadedness, or feeling off balance while ambulating.
--- NOTE | 2024-08-11 14:48 | DI.MRI.S_ITS ---
PROCEDURE: MR HEAD/BRAIN WO CON INDICATIONS: Dizzy/possible stroke TECHNIQUE: Non-contrast axial T1 spin echo, axial T2 fast spin echo, sagittal and axial FLAIR, coronal T2 fast spin echo, axial gradient echo, axial diffusion and ADC through the brain. COMPARISON: [facility], CT, CT HEAD/BRAIN WO CON, 08/11/2024, 12:42. FINDINGS: Image quality: Diagnostic CSF spaces: Ventricles appear symmetric in size and shape. Basal cisterns are patent. No extra-axial fluid collections. Brain: No intracranial bleeds or mass effects. There is cerebral volume loss for age. There are periventricular and deep white matter chronic small vessel ischemic changes. Brainstem appears normal. Diffusion-weighted images show no acute infarct. No chronic ischemic insults. Normal intravascular flow voids are present. Skull and face: Calvarial bone marrow is normal in signal. Orbits are normal. Sinuses: Sinuses and mastoids are clear. IMPRESSION: MRI brain without acute intracranial abnormalities. No evidence for acute cerebral infarction. No evidence for mass or mass effect. Age related senescent changes and sequela of chronic small vessel ischemic disease. Dictated by: Saravanan Zavala M.D. on 08/11/2024 at 18:50 Approved by: Saravanan Zavala M.D. on 08/11/2024 at 18:53
[2024-08-11 15:18] LABS: Appearance Urine UA SL CLOUDY; Bilirubin Urine UA NEGATIVE (NEGATIVE); Color Urine UA YELLOW; Glucose Urine UA NEGATIVE (Negative); Ketones Urine UA NEGATIVE (NEGATIVE); Leukocyte Esterase Urine UA 1+ (NEGATIVE); Nitrite Urine UA POSITIVE (Negative); Occult Blood Urine UA TRACE-INTACT (Negative); Protein Urine UA NEGATIVE (Negative); Urobilinogen Urine UA 0.2 E.U./dL (0.2)
[2024-08-11 15:25] LABS: Bacteria Urine Moderate (10-30); Culture Indicated Urine Cult Not Indicated; RBC Urine 1-5/HPF (0-5/HPF); Squamous Epithelial Cell Urine 1-5 /HPF (0-5/HPF); Urine Volume 10mL (spun); WBC Urine 10-30/HPF (0-5/HPF)
[2024-08-11] MEDS: CEFDINIR 300 MG CAPSULE PO (15:41)
[2024-08-11 16:14] LABS: Creatine Kinase 44 U/L (30-135)
[2024-08-11 16:27] LABS: Troponin I < 0.012 ng/mL (0.01-0.034)
== END 2024-08-11 19:33 | disposition home or self-care (01) ==
PROVIDERS: Emergency Medicine; Emergency Provider Emergency Medicine; PCP Student in an Organized Health Care Education/Training Program
DX: R42 Dizziness and giddiness (principal); N39.0 Urinary tract infection, site not specified; R11.2 Nausea with vomiting, unspecified
CPT/HCPCS: 36415; 70450; 70496; 70498; 70551; 80053; 81001; 82550; 83735; 84484; 85025; 85610; 85730; 93005; 96361; 96374; 99284; J2405; Q9967

== ENCOUNTER → 2024-09-01 11:32 | Outpatient (CLI) | payer MEDICARE, SELFPAY ==
--- NOTE | 2024-09-01 11:32 | DI.MG.S_ITS ---
MM screening mammo BI: 09/01/2024. BI-RADS: 1 CLINICAL: 74-year old female for bilateral screening mammogram. Tyrer-Cuzick lifetime risk of 2.4%. No personal or first-degree family history of breast cancer. History of ovarian cancer in one first-degree relative. PRIOR EXAMS 08/05/2023, 03/20/2022, 03/14/2021, 03/06/2020, 08/30/2019, 03/03/2019, 08/25/2018, 02/16/2018, 01/21/2018. MAMMOGRAPHY TECHNIQUE: 2D and 3D (tomosynthesis) digital mammographic views obtained, with additional images as needed for full coverage. Current study was also evaluated with a Computer Aided Detection (CAD) system. DENSITY B. There are scattered areas of fibroglandular density. MAMMOGRAPHY FINDINGS Bilateral: No suspicious mass, asymmetry, microcalcification, or other abnormality seen. IMPRESSION: * No evidence of malignancy. RECOMMENDATIONS Bilateral * Annual screening mammography. OVERALL ASSESSMENT CATEGORY BI-RADS-1: Negative. The [employer] recommends annual screening mammography beginning at age 40 for women with average risk of breast cancer. ELECTRONICALLY SIGNED: Saravanan Zavala M.D. on 09/04/2024 at 10:10:10 PM PT Interpreting Station ID: [id number]
== END ==
LOC: MAMMO 11:32
PROVIDERS: PCP Student in an Organized Health Care Education/Training Program; Referring Provider Student in an Organized Health Care Education/Training Program; Visit Provider Student in an Organized Health Care Education/Training Program
DX: Z12.31 Encounter for screening mammogram for malignant neoplasm of breast (principal); Z80.41 Family history of malignant neoplasm of ovary
CPT/HCPCS: 77063; 77067

== ENCOUNTER → 2024-09-01 11:51 | Outpatient (CLI) | payer MEDICARE, SELFPAY ==
--- NOTE | 2024-09-01 11:52 | DI.ECHO.S_ITS ---
[facility] : : [address] : : [place] : : [id number] : : Phone: [phone] Echocardiogram Report + + :Name: BENJI BLANKENSHIP Study Date: 09/01/2024 Height: 67 in : :[facility] ReadingLocation: Weight: 240 lb : : Gender: Female BSA: 2.2 m2 : :: 1950 Age: 74 yrs BP: 133/84 mmHg: :Reason For Study: MURMUR : :Ordering Physician: LIBERTAD, : :JODIE Degroot Performed By: Jamilah Bosch : :Referring: JODIE MAURER R : + + Interpretation Summary 1. The left ventricular contractility is borderline. Estimated ejection fraction is 50 to 55% with no segmental wall motion abnormalities. No LVH. Normal diastolic function. 2. The right ventricular contractility is normal. 3. All cardiac chambers are of normal size. 4. Trace to mild mitral regurgitation. 5. No obvious intracardiac shunts. 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 6. No obvious intracardiac masses nor thrombi. 7. No hemodynamically significant pericardial effusion. 8. Low right-sided filling pressures. Conclusion: Low normal left ventricular systolic function with trace to mild mitral regurgitation. Procedure: A two-dimensional transthoracic echocardiogram with color flow and Doppler was performed. The study quality was technically adequate. There is no prior echocardiogram noted for this patient. The patient was in sinus rhythm with heart rates between 73-86 bpm during the exam. Left Ventricle: The left ventricle is normal in size and wall thickness. The ejection fraction is estimated to be 50-55%. Diastolic parameters suggest probable normal left ventricular diastolic function and normal filling pressures. Right Ventricle: The right ventricle is normal in size and function. Atria: The left atrial size is normal. Right atrial size is normal. The atrial septum is aneurysmal. Mitral Valve: The mitral valve leaflets appear to open well. There is mild mitral annular calcification. There is mild mitral regurgitation. Aortic Valve: The aortic valve is trileaflet. The aortic valve opens well. There is no aortic valve stenosis. No aortic regurgitation is present. Tricuspid Valve: The tricuspid valve leaflets are thin and pliable. There is trace tricuspid regurgitation. Pulmonary artery pressures cannot be estimated because of the lack of a measurable TR jet velocity but the IVC suggests a CVP of around 3 mmHg. Pulmonic Valve: The pulmonic valve leaflets are thin and pliable; valve motion is normal. There is trace pulmonic regurgitation. Great Vessels: The aortic root is normal size. The dimensions of the ascending aorta are normal. The IVC is of normal diameter and collapses greater than 50% with a sniff. This suggests a low right atrial pressure of 3 mm Hg. Pericardium/ Pleura There is no pericardial effusion. There is no pleural effusion. MMode/2D Measurements & Calculations LVIDd: 5.6 cm LVOT diam: 2.1 cm LVIDs: 3.8 cm Ao root diam: 3.3 cm FS: 32.4 % asc Aorta Diam: 3.3 cm EPSS: 0.95 cm Ao Arch Diam (Prox Trans): 2.7 cm IVSd: 0.60 cm LVPWd: 0.79 cm LV chirinos. diameter/BSA (cm/m^2): 2.6 LV sys. diameter/BSA (cm/m^2): 1.7 LA A2 area: 13.1 cm2 RA long axis: 6.2 cm LA A4 area: 22.3 cm2 RA area: 20.4 cm2 LA length (vol): 6.2 cm RA vol: 57.2 ml LA vol: 39.7 ml RA : 26.2 ml/m2 LA vol index: 18.2 ml/m2 IVC diam: 1.2 cm RVD1 (basal): 3.6 cm RVD2 (mid): 2.9 cm TAPSE: 2.7 cm Doppler Measurements & Calculations Ao V2 max: 165.3 cm/sec LVOT Max Silvino: 74.1 cm/sec Ao V2 mean: 114.6 cm/sec LV V1 max P.2 mmHg Ao max P.9 mmHg LV V1 VTI: 17.1 cm Ao mean P.9 mmHg CONRAD(I,D): 1.7 cm2 Ao V2 VTI: 34.3 cm CONRAD(V,D): 1.6 cm2 sev ratio: 0.50 CONRAD indexed to BSA (cm^2/m^2): 0.79 MV E max silvino: 63.8 cm/sec PA V2 max: 105.1 cm/sec MV A max silvino: 95.6 cm/sec PA V2 mean: 65.4 cm/sec MV E/A: 0.67 PA mean P.0 mmHg Med Peak E' Silvino: 7.5 cm/sec PA pr(Accel): 27.6 mmHg E/E' med: 8.5 Lat Peak E' Silvino: 9.6 cm/sec E/E' lat: 6.7 E/e' average: 7.6 MV dec time: 0.21 sec SV(LVOT): 59.2 ml Reading Physician:YOLANDA
== END ==
PROVIDERS: PCP Student in an Organized Health Care Education/Training Program; Referring Provider Family Medicine; Visit Provider Family Medicine
DX: I34.81 Nonrheumatic mitral (valve) annulus calcification (principal); I34.0 Nonrheumatic mitral (valve) insufficiency; I49.9 Cardiac arrhythmia, unspecified; R01.1 Cardiac murmur, unspecified
CPT/HCPCS: 93306

== ENCOUNTER → 2024-09-08 13:55 | Outpatient (CLI) | payer MEDICARE, SELFPAY ==
[2024-09-08 14:26] LABS: Appearance Urine UA CLEAR; Bilirubin Urine UA 1+ (NEGATIVE); Color Urine UA YELLOW; Glucose Urine UA NEGATIVE (Negative); Ketones Urine UA TRACE (NEGATIVE); Leukocyte Esterase Urine UA NEGATIVE (NEGATIVE); Nitrite Urine UA NEGATIVE (Negative); Occult Blood Urine UA NEGATIVE (Negative); Protein Urine UA NEGATIVE (Negative); Specific Gravity Urine UA >=1.030 (1.000-1.035); Urobilinogen Urine UA 1.0 E.U./dL (0.2)
[2024-09-08 14:32] LABS: pH Urine UA 5.5 (4.5-8.0)
[2024-09-08 14:36] LABS: Culture Indicated Urine Cult Not Indicated
[2024-09-08 14:38] LABS: Ictotest Urine Negative (Negative)
[2024-09-08 14:42] LABS: Alanine Aminotransferase 17 IU/L (<35); Albumin 4.1 g/dL (3.5-5.0); Albumin Globulin Ratio 1.6 (1.0-2.8); Alkaline Phosphatase 71 U/L (38-126); Blood Urea Nitrogen 22 mg/dL (7-17); Calcium 9.2 mg/dL (8.4-10.2); Carbon Dioxide 29 mmol/L (22-32); Chloride 101 mmol/L (98-107); Estimated Glomerular Filt Rate > 60 mL/min (>60); Globulin 2.5 g/dL (1.7-4.1); Glucose 115 mg/dL (70-99); HEMOLYSIS < 15 (0-50); Potassium 3.5 mmol/L (3.4-5.1); Sodium 138 mmol/L (137-145); Total Protein 6.6 g/dL (6.3-8.2)
[2024-09-08 15:14] LABS: TSH w/ Reflex to FT4 0.30 uIU/mL (0.47-4.68)
[2024-09-08 17:31] LABS: Free T4, Direct Thyroxine 1.20 ng/dL (0.78-2.19)
== END ==
PROVIDERS: Family Medicine; PCP Student in an Organized Health Care Education/Training Program; Referring Provider Student in an Organized Health Care Education/Training Program; Visit Provider Student in an Organized Health Care Education/Training Program
DX: E11.9 Type 2 diabetes mellitus without complications (principal); E80.6 Other disorders of bilirubin metabolism; R79.89 Other specified abnormal findings of blood chemistry; N39.0 Urinary tract infection, site not specified
CPT/HCPCS: 36415; 80053; 81001; 84439; 84443

== ENCOUNTER → 2025-01-16 09:07 | Outpatient (CLI) | payer MEDICARE, SELFPAY ==
[2025-01-16 10:10] LABS: Add Manual Diff / Slide Review NO; Hematocrit 43.3 % (36-46); Hemoglobin 14.6 g/dL (12.0-16.0); Lymphocytes Absolute Auto 2100 /uL (1100-4500); Mean Corpuscular HGB Conc 33.8 % (30-36); Mean Corpuscular Hemoglobin 30.9 PG (26-34); Mean Corpuscular Volume 91.5 fL (80-100); Platelet Count 236 X10^3/uL (150-400)
[2025-01-16 10:22] LABS: Hemoglobin A1C% w Est Avg Glu 6.1 % (4.0-6.0)
[2025-01-16 10:52] LABS: Alanine Aminotransferase 15 IU/L (<35); Albumin 3.9 g/dL (3.5-5.0); Albumin Globulin Ratio 1.5 (1.0-2.8); Alkaline Phosphatase 81 U/L (38-126); Blood Urea Nitrogen 21 mg/dL (7-17); Calcium 9.2 mg/dL (8.4-10.2); Carbon Dioxide 29 mmol/L (22-32); Chloride 100 mmol/L (98-107); Cholesterol 221 mg/dL (140-199); Estimated Glomerular Filt Rate > 60 mL/min (>60); Globulin 2.6 g/dL (1.7-4.1); Glucose 106 mg/dL (70-99); HDL Cholesterol 61 mg/dL (40-60); HEMOLYSIS < 15 (0-50); Potassium 3.4 mmol/L (3.4-5.1); Sodium 140 mmol/L (137-145); Total Protein 6.5 g/dL (6.3-8.2); Triglycerides 105 mg/dL (35-150)
[2025-01-16 10:57] LABS: Appearance Urine UA SL CLOUDY; Bilirubin Urine UA NEGATIVE (NEGATIVE); Color Urine UA YELLOW; Glucose Urine UA NEGATIVE (Negative); Ketones Urine UA TRACE (NEGATIVE); Leukocyte Esterase Urine UA 1+ (NEGATIVE); Nitrite Urine UA NEGATIVE (Negative); Occult Blood Urine UA NEGATIVE (Negative); Protein Urine UA NEGATIVE (Negative); Specific Gravity Urine UA 1.025 (1.000-1.035); Urobilinogen Urine UA 1.0 E.U./dL (0.2)
[2025-01-16 11:01] LABS: pH Urine UA 6.0 (4.5-8.0)
[2025-01-16 11:02] LABS: Culture Indicated Urine Specimen Cultured
[2025-01-16 11:39] LABS: Microalbumi Creatinin Ratio Ur 8.0 ug/mg CR (<30)
== END ==
PROVIDERS: PCP Student in an Organized Health Care Education/Training Program; Referring Provider Student in an Organized Health Care Education/Training Program; Visit Provider Student in an Organized Health Care Education/Training Program
DX: E11.69 Type 2 diabetes mellitus with other specified complication (principal); E66.9 Obesity, unspecified; E78.5 Hyperlipidemia, unspecified; E80.6 Other disorders of bilirubin metabolism; N39.0 Urinary tract infection, site not specified
CPT/HCPCS: 36415; 80053; 80061; 81001; 82043; 82570; 83036; 85025; 87077; 87086; 87186

== ENCOUNTER → 2025-01-27 10:57 | Outpatient (CLI) | payer MEDICARE, SELFPAY ==
[2025-01-27 12:14] LABS: Culture Indicated Urine Cult Not Indicated
[2025-01-27 16:15] LABS: Appearance Urine UA CLEAR; Bilirubin Urine UA NEGATIVE (NEGATIVE); Color Urine UA YELLOW; Glucose Urine UA NEGATIVE (Negative); Ketones Urine UA TRACE (NEGATIVE); Leukocyte Esterase Urine UA NEGATIVE (NEGATIVE); Nitrite Urine UA NEGATIVE (Negative); Occult Blood Urine UA NEGATIVE (Negative); Protein Urine UA NEGATIVE (Negative); Specific Gravity Urine UA 1.020 (1.000-1.035); Urobilinogen Urine UA 1.0 E.U./dL (0.2); pH Urine UA 6.0 (4.5-8.0)
== END ==
PROVIDERS: PCP Student in an Organized Health Care Education/Training Program; Referring Provider Student in an Organized Health Care Education/Training Program; Visit Provider Student in an Organized Health Care Education/Training Program
DX: N39.0 Urinary tract infection, site not specified (principal)
CPT/HCPCS: 81003; 81015; 87086